=== PATIENT | female | born 1930 | race Caucasian/White ===

== ENCOUNTER → 2016-07-03 | Outpatient (CLI) | payer MEDICARE, OTHER | LOC: GMAM 11:00 | PROVIDERS: ATTEND Family Medicine | DX: E53.8 Deficiency of other specified B group vitamins (principal); R23.3 Spontaneous ecchymoses; R42 Dizziness and giddiness ==

== ENCOUNTER → 2016-11-02 | Outpatient (CLI) | payer MEDICARE, OTHER | END | disposition home or self-care (01) | LOC: GMAM 10:47 | PROVIDERS: ATTEND Family Medicine | DX: R06.02 Shortness of breath (principal) ==

== ENCOUNTER 2016-11-24 12:09 | Inpatient (IN) | payer MEDICARE, OTHER ==
[2016-11-24] MEDS ORDERED: NITROGLYCERIN 0.4 MG 25 EA TAB SL PRN ×2 (12:32→15:01)
[2016-11-24] MEDS ORDERED: ASPIRIN (CHEWABLE) 81 MG TAB PO ONE (12:32)
--- NOTE | 2016-11-24 12:51 | RAD ---
EXAM DESCRIPTION: Chest,1 View CLINICAL HISTORY: Chest heaviness. COMPARISON: Chest radiograph dated August 04, 2015. IMPRESSION: Single portable upright frontal view of the chest was obtained. Cardiac silhouette is upper limits of normal in size. Pulmonary vascularity is within normal limits. Calcific atherosclerosis noted of the aortic arch. There is blunting of the left costophrenic angle, compatible with small left-sided pleural effusion with adjacent compressive atelectasis of the left lower lobe. Probable tiny right-sided pleural effusion. Right lung is clear. No pneumothorax. IMPRESSION: 1. Small left-sided pleural effusion with adjacent compressive atelectasis of the left lower lobe. Underlying infiltrate cannot be entirely excluded. 2. Probable tiny right-sided pleural effusion. Electronically signed by: Francisco Calderón MD 11/24/2016 12:50 PM CDT
--- NOTE | 2016-11-24 13:02 | ED.PDOC ---
History of Present Illness - General Chief Complaint: General Stated Complaint: Chest heaviness Time Seen by Provider: 11/24/16 12:10 Source: patient, RN notes reviewed, Vital Signs reviewed Exam Limitations: no limitations - History of Present Illness Initial Comments: Patient was sent here from the clinic due to c/o of chest heaviness. She was there to schedule an esophageal dilation and has contributed her symptoms to her stricture. She reports 5 days of continuous chest heaviness, substernal. + SOB and nausea. No diaphoresis. Denies pain. Heaviness is worse with laying down. Timing/Duration: constant - for past 5 days Severity: moderate Improving Factors: nothing Worsening Factors: nothing Associated Symptoms: nausea/vomiting, shortness of breath Allergies/Adverse Reactions: Allergies NO KNOWN ALLERGY Allergy (Verified 11/24/16 12:20) Home Medications: Ambulatory Orders Estradiol 0.5 mg PO BEDTIME 07/29/15 Magnesium 400 mg PO DAILY 07/29/15 Multiple Vitamin [Multivitamins] 1 cap PO DAILY 07/29/15 Potassium Chloride [Potassium Chloride ER] 40 meq PO BID 07/29/15 Metoprolol Succinate [Toprol Xl] 25 mg PO BEDTIME #30 tab.er.24 07/30/15 Atorvastatin Calcium [Lipitor] 80 mg PO BEDTIME #30 tab 08/07/15 Midodrine HCl 10 mg PO TID #45 tab 08/07/15 Aspirin [Baby Aspirin] 162 mg PO DAILY 11/24/16 Citalopram Hydrobromide [CeleXA] 20 mg PO DAILY 11/24/16 Review of Systems - Review of Systems Constitutional: States: no symptoms reported EENTM: States: no symptoms reported Respiratory: States: short of breath. Denies: cough Cardiology: States: chest pain - Heaviness, palpitations. Denies: syncope Gastrointestinal/Abdominal: States: nausea, other - esophageal sticture causing discomfort, difficulty swallowing and speaking. Denies: abdominal pain, vomiting Musculoskeletal: States: no symptoms reported Skin: States: no symptoms reported Neurological: States: no symptoms reported Endocrine: States: no symptoms reported Past Medical History (General) - Patient Medical History Hx Seizures: No Hx Stroke: No Hx Dementia: No Hx Asthma: No Hx of COPD: No Hx Cardiac Disorders: No Hx Congestive Heart Failure: No Hx Pacemaker: No Hx Hypertension: Yes Hx Thyroid Disease: No Hx Diabetes: No Hx Gastroesophageal Reflux: No Hx Renal Disease: No Hx Cancer: No Hx of HIV: No Hx Hepatitis C: No Hx MRSA: No - Vaccination History Hx Tetanus, Diphtheria Vaccination: No Hx Influenza Vaccination: No Hx Pneumococcal Vaccination: No - Social History Hx Tobacco Use: Yes - Smoked as a teenager Hx Chewing Tobacco Use: No Hx Alcohol Use: No Hx Substance Use: No Hx Substance Use Treatment: No Hx Depression: No Hx Physical Abuse: No Hx Emotional Abuse: No Hx Suspected Abuse: No - Female History Patient : No Family Medical History - Family History Brother Age (years): 80 Living Status: Hx Family Asthma: No Hx Family Congestive Heart Failure: No Hx Family Hypertension: No Hx Family Stroke: No Hx Cardiac Disease: No Hx Family Diabetes: Yes Hx Family Cancer: No Mother Family History: Unknown Age (years): 92 Living Status: Cause of : Cancer Hx Family Asthma: No Hx Family Congestive Heart Failure: No Hx Family Hypertension: Yes Hx Family Stroke: No Hx Cardiac Disease: Yes Hx Family Diabetes: Yes Hx Family Cancer: Yes - stomach Physical Exam - Physical Exam General Appearance: Alert, No apparent distress - but appears uncomfortable Ears, Nose, Throat: other - Hoarse voice Neck: non-tender, full range of motion, supple Respiratory: chest non-tender, lungs clear, normal breath sounds, no respiratory distress, no accessory muscle use Cardiovascular/Chest: regular rate, rhythm, no edema, no gallop, no JVD, no murmur Gastrointestinal/Abdominal: normal bowel sounds, non tender, soft, no organomegaly, no pulsatile mass Extremity: normal range of motion, non-tender, normal inspection, no pedal edema Neurologic: alert, normal mood/affect, oriented x 3 Skin Exam: normal color, warm/dry Comments: Vital Signs - 24 hr 11/24/16 12:10 Temperature 98.7 F Pulse Rate [ 56 L Left Radial] Respiratory 20 Rate Blood Pressure 129/77 [Left Arm] O2 Sat by Pulse 97 Oximetry Progress - Progress Progress: 11/24/16 13:53 Patient with no improvement in symptoms with SLNTG or GI cocktail. She is in new onset CHF. 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 EKG unchanged from his last. no Dx of CHF but did have a BNP of ~ 400 @ last check. Will admit to hospital, discussed with Grisel Esteves NP and follow up with Dr. Schumacher on Sunday for echocardiogram - Results/Orders Results/Orders: Laboratory Tests 11/24/16 11/24/16 12:55 12:55 WBC 5.9 RBC 4.36 Hgb 12.7 Hct 38.9 MCV 89.3 MCH 29.2 MCHC 32.6 L RDW 13.8 Plt Count 165 MPV 7.7 Absolute Neuts (auto) 3.60 Absolute Lymphs (auto) 1.60 Absolute Monos (auto) 0.60 Absolute Eos (auto) 0.10 Absolute Basos (auto) 0.10 Neutrophils % 60.5 Lymphocytes % 27.4 Monocytes % 9.5 H Eosinophils % 1.7 Basophils % 0.9 Sodium 142 Potassium 3.5 L Chloride 105 Carbon Dioxide 28 Anion Gap 12.5 BUN 19 H Creatinine 0.97 BUN/Creatinine Ratio 19.6 Random Glucose 91 Serum Osmolality 285.0 Calcium 9.2 Total Bilirubin 0.9 AST 33 ALT 23 Alkaline Phosphatase 74 Creatine Kinase 48 CK-MB (CK-2) 1.5 CK-MB (CK-2) % Not Reportable Troponin I < 0.02 B-Natriuretic Peptide 1070.0 H* Serum Total Protein 6.6 Albumin 3.6 Globulin 3.0 Albumin/Globulin Ratio 1.2 - EKG/XRAY/CT EKG: Sinus, no ST T wave changes, Unchanged from - Prior EKG done by Dr. Schumacher Comments: 1st degree block, frequent PVC's XRAY: chest - Sm bilateral pleural effusions. Departure - Departure Clinical Impression: Congestive heart failure of unknown etiology Time of Disposition: 13:56 Disposition: Admit Patient Condition: Fair Departure Forms: ED Discharge - Pt. Copy, Patient Portal Self Enrollment Referrals: Mariano Staples MD [Primary Care Provider] - 1-2 Weeks Home Medications: Ambulatory Orders Estradiol 0.5 mg PO BEDTIME 07/29/15 Magnesium 400 mg PO DAILY 07/29/15 Multiple Vitamin [Multivitamins] 1 cap PO DAILY 07/29/15 Potassium Chloride [Potassium Chloride ER] 40 meq PO BID 07/29/15 Metoprolol Succinate [Toprol Xl] 25 mg PO BEDTIME #30 tab.er.24 07/30/15 Atorvastatin Calcium [Lipitor] 80 mg PO BEDTIME #30 tab 08/07/15 Midodrine HCl 10 mg PO TID #45 tab 08/07/15 Aspirin [Baby Aspirin] 162 mg PO DAILY 11/24/16 Citalopram Hydrobromide [CeleXA] 20 mg PO DAILY 11/24/16 Decision To Admit - Decistion To Admit Decision to Admit Reason: Admit from ER Decision to Admit Date: 11/24/16 Decision to Admit Time: 13:53
[2016-11-24] MEDS ORDERED: LIDOCAINE VIS-MYLANTA 30 ML UD PO ONE (13:22)
--- NOTE | 2016-11-24 14:22 | HP ---
SUPERVISING PHYSICIAN: Mariano Staples MD CHIEF COMPLAINT: Chest pressure. HISTORY OF PRESENT ILLNESS: This is an 86-year-old, female patient who is a patient of Dr. Staples's. She had gone to [facility] today to clarify an appointment with Dr. Mansfield. She was to have her esophagus stretched and she was not scheduled until 12/28/16 and she was in the clinic to see if Dr. Staples could get her an earlier appointment with Dr. Mansfield or Dr. Vickers. While she was in the clinic, she told the desk staff that she was having a lot of pressure on her chest and it felt like someone was sitting on her chest. They sent her over to the Emergency Room. In the Emergency Room, lab work was done and her CBC was basically within normal limits. Her metabolic panel showed a sodium of 142, potassium 3.5, chloride 105, carbon dioxide 28, BUN 19, creatinine 0.97. Her creatinine kinase was 48, CK-MB 1.5, troponin less than 0.02, but her BNP was 1070. The Emergency Room doctor spoke with Dr. Schumacher and he recommended that she be placed in the hospital with gentle diuresis over the next several days and that he would followup with her in clinic on Sunday and do an echocardiogram. I was called for hospital admission. PAST MEDICAL HISTORY: 1. Hypertension. 2. Hyperlipidemia. 3. Coronary artery disease. 4. Esophageal stricture. 5. History of cerebral hemorrhage approximately five years ago. 6. Gastroesophageal reflux. PAST SURGICAL HISTORY: 1. Cholecystectomy. 2. Tonsillectomy. 3. Hysterectomy. 4. Removal of intraabdominal adhesions. 5. Brain surgery due to her intracerebral hemorrhage. HOME MEDICATIONS: Per the EMR and awaiting verification. ALLERGIES: NO KNOWN DRUG ALLERGIES. SOCIAL HISTORY: The patient has recently been . She lives at home. She does have a service line bus cleaner, which is her niece. She denies any tobacco, ETOH, or illicit drug use. REVIEW OF SYSTEMS: GENERAL: Denies fever, chills or weight changes. HEENT: Denies sinus symptoms, ear pain, vision changes or sore throat. RESPIRATORY: Positive for some shortness of breath, but denies wheezing or coughing. CARDIAC: As per history of present illness. GASTROINTESTINAL: Positive for acid reflux and difficulty swallowing as well as some mild nausea. Denies vomiting, diarrhea or constipation. GENITOURINARY: Denies hematuria, dysuria or polyuria. EXTREMITIES: Positive for pedal edema that has worsened over the last month. NEUROLOGIC: Positive for dizziness. Negative for headache or seizures. PHYSICAL EXAMINATION: VITAL SIGNS: Afebrile. Heart rate 50. Blood pressure 131/81. Respiratory rate 20. O2 saturation 95% on room air. GENERAL: This is an 86-year-old female patient who is sitting on the side of her hospital bed. She is in no acute distress. HEENT: Normocephalic, atraumatic. Pupils are equal and reactive. NECK: Supple without mass. No discernible jugular venous distention. RESPIRATORY: Scattered crackles throughout. CHEST: There is equal rise and fall of the chest with inspiration and expiration. CARDIOVASCULAR: Bradycardic rate and regular rhythm. Sinus mariah on the threat monitoring analyst. ABDOMEN: Soft, nondistended, nontender. Bowel sounds are positive. EXTREMITIES: No cyanosis, clubbing or edema. NEUROLOGIC: Awake, alert and oriented times three. LABORATORY: As per history of present illness. Chest x-ray per radiologic interpretation shows a small left sided pleural effusion with adjacent compression atelectasis of the left lower lobe. Underlying infiltrate cannot be entirely excluded. Probable tiny right sided pleural effusion. All other labs and films have been reviewed via the EMR. ASSESSMENT: 1. Congestive heart failure, most likely new onset. I do not have any recorded history of heart failure. She is scheduled to have an echocardiogram on Sunday with Dr. Schumacher. 2. Bradycardia. 3. Chest pain, most likely due to #1. 4. Dizziness and weakness. 5. Hypertension. 6. Gastroesophageal reflux. 7. Esophageal stricture. 8. History of intracerebral hemorrhage five years ago. PLAN: We will admit the patient to the hospital. I will initiate the congestive heart failure guidelines. I have placed her on fluid restrictions. We will put her on the monitor. I have also started her on nitro paste. We will gently diurese her. She is presently on a beta neel and I will add a very small dose of an HAZEL inhibitor. I will put her on Protonix for ulcer prophylaxis. I will hold off on Lovenox for now as she is up and mobile and she does have the history of an intracerebral hemorrhage. We will do daily weights and follow her closely. Continue to treat as medically necessary. Hopefully she can be discharged in the next two to three days with close followup with Dr. Schumacher on Sunday. I have also done serial cardiac enzymes due to the chest pain. Dr. Staples is the collaborating physician and available for consultation. #[id number] [facility]
[2016-11-24] MEDS ORDERED: ONDANSETRON INJ 4 MG/2 ML VIAL IV PRN (15:01)
[2016-11-24] MEDS ORDERED: SODIUM CHLORIDE 0.9% (FLUSH) 10 ML SYG IV PRN (15:01)
[2016-11-24] MEDS ORDERED: MORPHINE SULFATE INJ 10 MG/ML VIAL IV PRN (15:12)
[2016-11-24] MEDS ORDERED: IV SET AND CAP CHANGE INJ INJ SCH (15:30)
[2016-11-24] MEDS: NITROGLYCERIN 2% 1 GM UD TOP SCH (15:39)
[2016-11-24] MEDS: FUROSEMIDE INJ 40 MG/4 ML VIAL IV SCH (15:39)
[2016-11-24] MEDS ORDERED: ALUMINUM & MAGNESIUM HYDROXIDE 30 ML UD PO PRN (16:02)
[2016-11-24] MEDS ORDERED: ACETAMINOPHEN 325 MG TAB PO PRN (16:03)
--- NOTE | 2016-11-24 16:05 | PCM.CORE ---
Physician DVT/VTE - Contraindications Medication Contraindication: Complication of Medical Care - 3-4 High Risk Treatments: Early Ambulation *, Sequential Compression Device
[2016-11-24] MEDS: LISINOPRIL 5 MG TAB PO SCH (16:28)
[2016-11-24] MEDS: PANTOPRAZOLE SODIUM IV 40 MG VIAL IV SCH (16:29)
[2016-11-24] MEDS ORDERED: POTASSIUM CHLORIDE 20 MEQ TAB PO ONE (16:40)
[2016-11-24] MEDS: SODIUM CHLORIDE 0.9% (FLUSH) 10 ML SYG IV SCH (21:10)
[2016-11-24] MEDS: TEMAZEPAM 15 MG CAP PO PRN (22:24)
--- NOTE | 2016-11-25 06:15 | RAD ---
Procedure: XR CHEST 2 VIEWS Exam Date: 11/25/2016 Ordering Provider: MORRIS LEBRON Clinical Indication: CHF Comparison: 11/24/2016 Findings: Cardiac silhouette: Enlarged Pulmonary vasculature : Normal Mediastinal contour: Normal Aortic contour: Aortic calcification. Focal lung consolidation: Left basilar atelectasis and/or infiltrate. Right basilar subsegmental atelectasis. Pleural effusion: Small left pleural effusion. Pneumothorax: None Acute bony or soft tissue abnormality: None Impression: 1. Cardiomegaly. 2. Left basilar atelectasis and/or infiltrate. 3. Small left pleural effusion. Electronically signed by: Ned Elliott MD 11/25/2016 6:15 AM CDT
[2016-11-25] MEDS: FUROSEMIDE INJ 40 MG/4 ML VIAL IV SCH (08:10)
[2016-11-25] MEDS: NITROGLYCERIN 2% 1 GM UD TOP SCH ×2 (08:10→16:52)
[2016-11-25] MEDS: SODIUM CHLORIDE 0.9% (FLUSH) 10 ML SYG IV SCH ×2 (08:10→20:45)
[2016-11-25] MEDS: LISINOPRIL 5 MG TAB PO SCH (08:10)
[2016-11-25] MEDS ORDERED: MEMANTINE 10 MG TAB ONE (09:06)
[2016-11-25] MEDS ORDERED: POTASSIUM CHLORIDE 10 MEQ TAB PO ONE (09:06)
[2016-11-25] MEDS ORDERED: CITALOPRAM HBR 20 MG TAB ONE (09:06)
[2016-11-25] MEDS ORDERED: METOPROLOL SUCCINATE XL 25 MG TAB PO ONE (09:06)
[2016-11-25] MEDS: METOPROLOL SUCCINATE XL 25 MG TAB PO SCH ×2 (09:26→20:44)
[2016-11-25] MEDS: MEMANTINE 10 MG TAB PO SCH (09:26)
[2016-11-25] MEDS: CITALOPRAM HBR 20 MG TAB PO SCH (09:26)
[2016-11-25] MEDS: POTASSIUM CHLORIDE 10 MEQ TAB PO SCH ×2 (09:27→17:12)
[2016-11-25] MEDS: MIDODRINE HCL 10 MG PO SCH ×2 (09:28→20:44)
[2016-11-25] MEDS ORDERED: POTASSIUM CHLORIDE 20 MEQ TAB PO ONE (12:19)
--- NOTE | 2016-11-25 13:26 | PN ---
SUPERVISING PHYSICIAN: Mariano Staples MD DATE: 11/25/16 SUBJECTIVE: The patient is sitting up on the side of the bed. She is eating her meal. She has no complaints of chest tightness or shortness of breath or chest pains, nausea, vomiting. She states she actually feels quite improved since yesterday and the "heaviness" in her chest is no longer there. OBJECTIVE: VITAL SIGNS: Afebrile. Heart rate 52. Blood pressure 121/68. Respiratory rate 16. O2 saturation 96% on room air. I&Os show positive output of 240, but the patient reported that she urinated multiple times throughout the last 24 hours. LUNGS: Clear to auscultation bilaterally. CARDIAC: Bradycardic rate and regular rhythm. ABDOMEN: Soft, nontender, nondistended. Bowel sounds are positive. EXTREMITIES: No cyanosis, clubbing or edema. NEUROLOGIC: Awake, alert and oriented times three. LABORATORY: CBC is basically within normal limits. Sodium 144, potassium 3.2, chloride 106, carbon dioxide 28, BUN 25, creatinine 1.05. Her cholesterol panel is within normal limits. Chest x-ray per radiologic interpretation showed : 1. Cardiomegaly. 2. Left basilar atelectasis and/or infiltrate. 3. Small left pleural effusion. All other labs and films have been reviewed via the EMR. ASSESSMENT: 1. Congestive heart failure, most likely new onset. There are no records of any history of heart failure. She is scheduled to have an echocardiogram on Sunday with Dr. Schumacher. 2. Bradycardia, most likely chronic. 3. Chest pain, most likely due to #1, now resolved. 4. Dizziness and weakness. 5. Hypertension. 6. Gastroesophageal reflux disease. 7. Esophageal stricture. 8. History of intracerebral hemorrhage five years ago. PLAN: We will continue present supportive care. I have changed her IV Lasix to p.o. Lasix. We have re-started her home medications. I have given her an additional dose of potassium today. I will check her labs in the morning. She is improved overnight and hopefully if her vital signs are stable and she continues to progress nicely, we will discharge her tomorrow with her followup appointment with Dr. Schumacher on Sunday where he will do an echocardiogram on her. She also has a followup with Dr. Staples the following week. Meanwhile, we will continue to monitor the patient closely and followup as needed. Dr. Staples is the collaborating physician and available for consultation. #[id number] [facility]
[2016-11-25] MEDS: PANTOPRAZOLE SODIUM IV 40 MG VIAL IV SCH (17:03)
[2016-11-25] MEDS ORDERED: ATORVASTATIN 20 MG TAB PO SCH (21:00)
[2016-11-25] MEDS: TEMAZEPAM 15 MG CAP PO PRN (21:59)
[2016-11-26] MEDS ORDERED: POTASSIUM CHLORIDE 10 MEQ TAB PO SCH (07:30)
[2016-11-26] MEDS ORDERED: FUROSEMIDE 40 MG TAB ONE (07:31)
[2016-11-26] MEDS: POTASSIUM CHLORIDE 10 MEQ TAB PO SCH (07:55)
[2016-11-26] MEDS ORDERED: FUROSEMIDE 40 MG TAB PO SCH (09:00)
[2016-11-26] MEDS: LISINOPRIL 5 MG TAB PO SCH (09:05)
[2016-11-26] MEDS: MEMANTINE 10 MG TAB PO SCH (09:05)
[2016-11-26] MEDS: SODIUM CHLORIDE 0.9% (FLUSH) 10 ML SYG IV SCH (09:08)
[2016-11-26] MEDS: CITALOPRAM HBR 20 MG TAB PO SCH (09:08)
[2016-11-26] MEDS: NITROGLYCERIN 2% 1 GM UD TOP SCH (09:08)
[2016-11-26] MEDS: METOPROLOL SUCCINATE XL 25 MG TAB PO SCH (09:09)
[2016-11-26 11:08] VITALS: BP 138/72; TEMP 98.2; O2SAT 97
--- NOTE | 2016-11-26 11:53 | DS ---
SUPERVISING PHYSICIAN: Nik Ramos MD DISCHARGE DIAGNOSES: 1. Congestive heart failure of unknown etiology, most likely new onset. There are no records of any congestive heart failure. Her BNP on admission was 1070, today it is 292. She is scheduled to have an echocardiogram with Dr. Schumacher on Sunday. 2. Bradycardia, most likely chronic. 3. Chest pain, most likely due to #1 that is now resolved. 4. Dizziness and weakness. 5. Hypertension. 6. Gastroesophageal reflux disease. 7. Esophageal stricture. 8. History of intracerebral hemorrhage five years ago. HISTORY OF PRESENT ILLNESS: This is an 86-year-old, female patient who is a patient of Dr. Cross. She had gone to the clinic on Sunday afternoon to have them assist her in getting her EGD scheduled with Dr. Vickers. While she was in the clinic, the personnel at [facility] noticed that she was having chest pain and she was sent to the Emergency Room. She said that she had been having a lot of chest pressure for several days and it felt like somebody was sitting on her chest. She was also slightly short of breath. In the Emergency Room, lab work was done and her CBC was basically within normal limits. Her metabolic panel showed a sodium of 142, potassium 3.5, chloride 305, carbon dioxide 28, BUN 19, creatinine 0.97. Her creatinine kinase was 48, CK-MB 1.5, troponin less than 0.02, but her BNP was 1070. The Emergency Room physician spoke with Dr. Schumacher and he recommended that she be placed in the hospital gently diuresed and he would see her in his clinic here on [place] on Sunday and do an echocardiogram. I was called for hospital admission. HOSPITAL COURSE: The patient was admitted to the hospital. She was initially put on some IV Lasix therapy, she diuresed quite nicely. Her chest pain and shortness of breath subsided. She was in transition to oral Lasix. Her potassium several times was slightly low and it had to be replaced. She said she has had some problems in the past with low potassium. She is presently on a beta neel and very low dose of an cee inhibitor was started. Her blood sugars remained stable with the exception she does get bradycardiac in the 50s at times but also states that she usually has a low heart rate. She diuresed quite nicely over her 2 day stay and at this point she is ready to go home with some medication changes as well as followup appointment. DISCHARGE PLAN: The patient will be discharged home in sable condition. She is to increase her activity as tolerated. She is follow a low salt diet. There is an appointment with Dr. Schumacher on Sunday for followup as well as an echocardiogram because her potassium has been somewhat low. She will see me in clinic on Sunday to check her potassium as well as to get her followup for her EGD with the GI doctor in [place]. She will have a hospital followup with Dr. Staples the following week. We have continued her previous home medications with the exception that I have slightly increased her potassium from 30 mEq to 40 mEq daily and I have added 20 mg of Lasix as well as 5 mg of lisinopril. She received extensive congestive heart failure treatment and she is to return to the hospital or call Dr. Staples's office for any further complications or problems. DISCHARGE MEDICATIONS: 1. Magnesium. 2. Estradiol. 3. multivitamins. 4. Lipitor. 5. Citalopram. 6. Magnesium oxide. 7. Omeprazole. 8. Namenda. 9. Hydrochlorothiazide. 10. Baby aspirin. 11. Midodrine.. 12. Metoprolol. 13. Furosemide. 14. Lisinopril. 15. Nitroglycerin. 16. Potassium chloride. #[id number] [facility]
[2016-11-26] MEDS ORDERED: ESTRADIOL TAB 1 MG PO SCH (21:00)
== END 2016-11-26 10:30 | disposition home or self-care (01) | DRG 293 ==
LOC: ER 12:09 → MS 14:19
PROVIDERS: ADMIT Nurse Practitioner Acute Care; ATTEND Nurse Practitioner Acute Care
DX: I11.0 Hypertensive heart disease with heart failure (principal); I50.9 Heart failure, unspecified; R00.1 Bradycardia, unspecified; R07.9 Chest pain, unspecified; R53.1 Weakness; R42 Dizziness and giddiness; E87.6 Hypokalemia; K21.9 Gastro-esophageal reflux disease without esophagitis; E78.5 Hyperlipidemia, unspecified; K22.2 Esophageal obstruction; I25.10 Atherosclerotic heart disease of native coronary artery without angina pectoris; Z86.73 Personal history of transient ischemic attack (TIA), and cerebral infarction without residual deficits; Z66 Do not resuscitate; Z79.82 Long term (current) use of aspirin; Z79.899 Other long term (current) drug therapy

== ENCOUNTER → 2016-11-29 | Outpatient (CLI) | payer MEDICARE, OTHER | END | disposition home or self-care (01) | LOC: GMA 11:02 | PROVIDERS: ATTEND Nurse Practitioner Acute Care | DX: I50.9 Heart failure, unspecified (principal); R60.0 Localized edema ==

== ENCOUNTER 2016-12-04 17:18 | Emergency (ER) | payer MEDICARE, OTHER ==
[2016-12-04 17:40] VITALS: BP 153/70; TEMP 98; O2SAT 99
--- NOTE | 2016-12-04 17:45 | ED.PDOC ---
History of Present Illness - General Chief Complaint: Upper Extremity Injury Stated Complaint: Fell Sunday, bruised forearm Time Seen by Provider: 12/04/16 17:43 Source: patient Exam Limitations: no limitations - History of Present Illness Initial Comments: the patient is an 86-year-old female presenting to the emergency room secondary tobruising and swelling surrounding her left elbow after she fell 2 days ago. She is moving the elbow and the left upper arm well. There is swelling starting at the elbow and swelling of the olecranon bursa. No evidence of infection at this time. Bruising extends down the forearm along with gravity. Range of motion is preserved. Strength is preserved. There is no crepitus about the elbow. No other deformity. She is neurovascularly intact in the left upper extremity. Occurred: last week Pain - Upper Extremity: mild: Elbow, left Allergies/Adverse Reactions: Allergies NO KNOWN ALLERGY Allergy (Verified 11/24/16 12:20) Home Medications: Ambulatory Orders Estradiol 0.5 mg PO BEDTIME #0 07/29/15 Magnesium 400 mg PO DAILY 07/29/15 Multiple Vitamin [Multivitamins] 1 cap PO DAILY 07/29/15 Atorvastatin Calcium [Lipitor] 80 mg PO BEDTIME #30 tab 08/07/15 Aspirin [Baby Aspirin] 162 mg PO DAILY 11/24/16 Citalopram Hydrobromide [Celexa] 20 mg PO DAILY 11/24/16 Hydrochlorothiazide 25 mg PO DAILY 11/24/16 Magnesium Oxide [Magnesium] 500 mg PO DAILY 11/24/16 Memantine [Namenda] 10 mg PO DAILY 11/24/16 Metoprolol Succinate [Toprol Xl] 25 mg PO BID 11/24/16 Midodrine HCl 10 mg PO BID 11/24/16 Omeprazole 20 mg PO BID 11/24/16 Furosemide [Lasix] 20 mg PO DAILY #30 tab 11/26/16 Lisinopril [Prinivil] 5 mg PO DAILY #30 tablet 11/26/16 Nitroglycerin 0.4 mg Tab [Nitrostat] 1 ea SL Q5MIN PRN #1 bottle 11/26/16 Potassium Chloride Tab [K-Dur] 40 meq PO DAILY #60 tab 11/26/16 Potassium Chloride [K-Tab] 40 meq PO BID #120 tab 11/26/16 Review of Systems - Review of Systems Review of Systems: 12/04/16 17:44 for new symptoms Constitutional: States: no symptoms reported EENTM: States: no symptoms reported Respiratory: States: no symptoms reported Cardiology: States: no symptoms reported Gastrointestinal/Abdominal: States: no symptoms reported Genitourinary: States: no symptoms reported Musculoskeletal: States: see HPI Skin: States: see HPI Neurological: States: no symptoms reported Endocrine: States: no symptoms reported All other Systems: No Change from Baseline Past Medical History (General) - Patient Medical History Hx Seizures: No Hx Stroke: No Hx Dementia: No Hx Asthma: No Hx of COPD: No Hx Cardiac Disorders: No Hx Congestive Heart Failure: No Hx Pacemaker: No Hx Hypertension: Yes Hx Thyroid Disease: No Hx Diabetes: No Hx Gastroesophageal Reflux: Yes Hx Renal Disease: No Hx Cancer: No Hx of HIV: No Hx Hepatitis C: No Hx MRSA: No Surgical History: cholecystectomy, tonsillectomy, Hysterectomy - Vaccination History Hx Tetanus, Diphtheria Vaccination: No Hx Influenza Vaccination: No Hx Pneumococcal Vaccination: No - Social History Hx Tobacco Use: No Hx Chewing Tobacco Use: No Hx Alcohol Use: No Hx Substance Use: No Hx Substance Use Treatment: No Hx Depression: No Feels Threatened In Home Enviroment: No Feels Threatened In a Relationship: No Hx Physical Abuse: No Hx Emotional Abuse: No Hx Suspected Abuse: No - Female History Patient is a Female of Child Bearing Age (10 -59 yrs old): No Patient : No Family Medical History - Family History Brother Age (years): 80 Living Status: Hx Family Asthma: No Hx Family Congestive Heart Failure: No Hx Family Hypertension: No Hx Family Stroke: No Hx Cardiac Disease: No Hx Family Diabetes: Yes Hx Family Cancer: No Mother Family History: Unknown Age (years): 92 Living Status: Cause of : Cancer Hx Family Asthma: No Hx Family Congestive Heart Failure: No Hx Family Hypertension: Yes Hx Family Stroke: No Hx Cardiac Disease: Yes Hx Family Diabetes: Yes Hx Family Cancer: Yes - stomach Physical Exam - Physical Exam General Appearance: Alert, Comfortable, No apparent distress Eyes, Ears, Nose, Throat Exam: PERRL/EOMI Neck: full range of motion Cardiovascular/Respiratory: normal peripheral pulses, no respiratory distress Shoulder Exam: normal inspection, non-tender, no evidence of injury, normal ROM Elbow/Forearm Exam: swelling - see history of present illness. Wrist Exam: normal inspection, non-tender, no evidence of injury, normal ROM Hand Exam: normal inspection, non-tender, no evidence of injury, normal ROM Neuro/Tendon: normal sensation, normal motor functions, normal tendon functions Mental Status: alert, oriented x 3 Skin Exam: normal color - ith the exception of the bruising Comments: Vital Signs - 24 hr 12/04/16 17:34 Temperature 98 F Pulse Rate [L 62 Arm] Respiratory 20 Rate Blood Pressure 153/70 [L Arm] O2 Sat by Pulse 99 Oximetry Progress - Progress Progress: 12/04/16 17:45 the patient is an 86-year-old female presenting with inflammation of the left olecranon bursa and bruising surrounding and extending down from the elbow due to a fall yesterday. No evidence of any functional limitation or pain with movement. She is neurovascularly preserved. X-rays not warranted at this time. Monitor for any evidence of infection. ER warnings were given for any worsening. She should expect some swelling of the olecranon bursa for the next month or so. - EKG/XRAY/CT CT Ordered: No CT Interpretation Call Back: No Departure - Departure Clinical Impression: Contusion Qualifiers: Encounter type: initial encounter Contusion area: elbow Laterality: left Qualified Code(s): S50.02XA - Contusion of left elbow, initial encounter Disposition: Discharge to Home or Self Care Condition: Fair Departure Forms: ED Discharge - Pt. Copy, Patient Portal Self Enrollment Instructions: DI for Contusion Diet: regular diet Activity: increase activity as tolerated Referrals: Mariano Staples MD [Primary Care Provider] - 1-2 Weeks Home Medications: Ambulatory Orders Estradiol 0.5 mg PO BEDTIME #0 07/29/15 Magnesium 400 mg PO DAILY 07/29/15 Multiple Vitamin [Multivitamins] 1 cap PO DAILY 07/29/15 Atorvastatin Calcium [Lipitor] 80 mg PO BEDTIME #30 tab 08/07/15 Aspirin [Baby Aspirin] 162 mg PO DAILY 11/24/16 Citalopram Hydrobromide [Celexa] 20 mg PO DAILY 11/24/16 Hydrochlorothiazide 25 mg PO DAILY 11/24/16 Magnesium Oxide [Magnesium] 500 mg PO DAILY 11/24/16 Memantine [Namenda] 10 mg PO DAILY 11/24/16 Metoprolol Succinate [Toprol Xl] 25 mg PO BID 11/24/16 Midodrine HCl 10 mg PO BID 11/24/16 Omeprazole 20 mg PO BID 11/24/16 Furosemide [Lasix] 20 mg PO DAILY #30 tab 11/26/16 Lisinopril [Prinivil] 5 mg PO DAILY #30 tablet 11/26/16 Nitroglycerin 0.4 mg Tab [Nitrostat] 1 ea SL Q5MIN PRN #1 bottle 11/26/16 Potassium Chloride Tab [K-Dur] 40 meq PO DAILY #60 tab 11/26/16 Potassium Chloride [K-Tab] 40 meq PO BID #120 tab 11/26/16 Additional Instructions: the patient is an 86-year-old female presenting with inflammation of the left olecranon bursa and bruising surrounding and extending down from the elbow due to a fall yesterday. No evidence of any functional limitation or pain with movement. She is neurovascularly preserved. X-rays not warranted at this time. Monitor for any evidence of infection. ER warnings were given for any worsening. She should expect some swelling of the olecranon bursa for the next month or so.
== END 2016-12-04 18:00 | disposition home or self-care (01) ==
LOC: ER 17:18
DX: S50.02XA Contusion of left elbow, initial encounter (principal); I10 Essential (primary) hypertension; Z79.82 Long term (current) use of aspirin; Z79.899 Other long term (current) drug therapy; W19.XXXA Unspecified fall, initial encounter; Y92.9 Unspecified place or not applicable

== ENCOUNTER → 2016-12-07 | Outpatient (CLI) | payer MEDICARE, OTHER | END | disposition home or self-care (01) | LOC: GMAM 14:01 | PROVIDERS: ATTEND Family Medicine | DX: E87.6 Hypokalemia (principal) ==

== ENCOUNTER → 2016-12-14 | Outpatient (CLI) | payer MEDICARE, OTHER | LOC: GMAM 16:47 | PROVIDERS: ATTEND Family Medicine | DX: E87.6 Hypokalemia (principal) ==

== ENCOUNTER 2016-12-16 19:40 | Emergency (ER) | payer MEDICARE, OTHER ==
--- NOTE | 2016-12-16 20:27 | ED.PDOC ---
History of Present Illness - General Chief Complaint: Respiratory Problem Stated Complaint: Difficulty Breathing Time Seen by Provider: 12/16/16 20:26 Source: patient, family Exam Limitations: no limitations - History of Present Illness Initial Comments: Ariana Laughlin 86y/o female recently diagnosed with CHF unspecified brought by daughter derrick because of SOB recently hospitalized here at [facility] 3 weeks ago and was started on diuretics by the bead preparer Dr. Schumacher also acording to patient had echocardiogram done and was told that her EF was normal.Denies chest pains ,cough.Stated has problems with inspiration but not breathing out. Timing/Duration: 4-6 hours Severity: moderate Activities at Onset: none Possible Cause: unknown cause Improving Factors: nothing Worsening Factors: nothing Associated Symptoms: denies symptoms Respiratory Risk Factors: no cause identified Allergies/Adverse Reactions: Allergies NO KNOWN ALLERGY Allergy (Verified 11/24/16 12:20) Home Medications: Ambulatory Orders Estradiol 0.5 mg PO BEDTIME #0 07/29/15 Magnesium 400 mg PO DAILY 07/29/15 Multiple Vitamin [Multivitamins] 1 cap PO DAILY 07/29/15 Atorvastatin Calcium [Lipitor] 80 mg PO BEDTIME #30 tab 08/07/15 Aspirin [Baby Aspirin] 162 mg PO DAILY 11/24/16 Citalopram Hydrobromide [Celexa] 20 mg PO DAILY 11/24/16 Hydrochlorothiazide 25 mg PO DAILY 11/24/16 Magnesium Oxide [Magnesium] 500 mg PO DAILY 11/24/16 Memantine [Namenda] 10 mg PO DAILY 11/24/16 Metoprolol Succinate [Toprol Xl] 25 mg PO BID 11/24/16 Midodrine HCl 10 mg PO BID 11/24/16 Omeprazole 20 mg PO BID 11/24/16 Furosemide [Lasix] 20 mg PO DAILY #30 tab 11/26/16 Lisinopril [Prinivil] 5 mg PO DAILY #30 tablet 11/26/16 Nitroglycerin 0.4 mg Tab [Nitrostat] 1 ea SL Q5MIN PRN #1 bottle 11/26/16 Potassium Chloride Tab [K-Dur] 40 meq PO DAILY #60 tab 11/26/16 Potassium Chloride [K-Tab] 40 meq PO BID #120 tab 11/26/16 Review of Systems - Review of Systems Constitutional: States: no symptoms reported EENTM: States: no symptoms reported Respiratory: States: see HPI Cardiology: States: no symptoms reported Gastrointestinal/Abdominal: States: no symptoms reported Genitourinary: States: no symptoms reported Musculoskeletal: States: no symptoms reported Skin: States: no symptoms reported Neurological: States: no symptoms reported Endocrine: States: no symptoms reported Hematologic/Lymphatic: States: no symptoms reported Past Medical History (General) - Patient Medical History Hx Seizures: No Hx Stroke: No Hx Dementia: No Hx Asthma: No Hx of COPD: No Hx Cardiac Disorders: No Hx Congestive Heart Failure: No Hx Pacemaker: No Hx Hypertension: Yes Hx Thyroid Disease: No Hx Diabetes: No Hx Gastroesophageal Reflux: Yes Hx Renal Disease: No Hx Cancer: No Hx of HIV: No Hx Hepatitis C: No Hx MRSA: No Surgical History: cholecystectomy, other - hysterectomy,colonoscopy,egd - Vaccination History Hx Tetanus, Diphtheria Vaccination: No Hx Influenza Vaccination: No Hx Pneumococcal Vaccination: No - Social History Hx Tobacco Use: No Hx Chewing Tobacco Use: No Hx Alcohol Use: No Hx Substance Use: No Hx Substance Use Treatment: No Hx Depression: No Hx Physical Abuse: No Hx Emotional Abuse: No Hx Suspected Abuse: No - Female History Patient : No Family Medical History - Family History Brother Age (years): 80 Living Status: Hx Family Asthma: No Hx Family Congestive Heart Failure: No Hx Family Hypertension: No Hx Family Stroke: No Hx Cardiac Disease: No Hx Family Diabetes: Yes Hx Family Cancer: No Mother Family History: Unknown Age (years): 92 Living Status: Cause of : Cancer Hx Family Asthma: No Hx Family Congestive Heart Failure: No Hx Family Hypertension: Yes Hx Family Stroke: No Hx Cardiac Disease: Yes Hx Family Diabetes: Yes Hx Family Cancer: Yes - stomach Physical Exam - Physical Exam General Appearance: Alert, Anxious, No apparent distress Eyes, Ears, Nose, Throat Exam: PERRL/EOMI, normal ENT inspection, TMs normal Neck: non-tender, full range of motion, supple Respiratory: chest non-tender, lungs clear, normal breath sounds, no respiratory distress Cardiovascular/Chest: normal peripheral pulses, regular rate, rhythm, no edema, no JVD, no murmur Peripheral Pulses: radial,right: 1+, radial,left: 1+ Gastrointestinal/Abdominal: normal bowel sounds, non tender, soft, no organomegaly Extremity: normal range of motion, pedal edema - trace Neurologic: no motor/sensory deficits, alert, normal mood/affect, oriented x 3 Skin Exam: normal color, warm/dry Lymphatic: no adenopathy Progress - Progress Progress: 12/17/16 00:30 Vital Signs - 8 hr 12/16/16 12/16/16 12/16/16 20:20 21:00 21:51 Temperature 98.6 F Pulse Rate [R 75 60 Arm] Respiratory 20 20 20 Rate Blood Pressure 96/40 120/85 [R Arm] O2 Sat by Pulse 98 95 Oximetry 12/16/16 20:31 IV Care:Saline Lock per Protoc QSHIFT Laboratory Results - last 24 hr 12/16/16 12/16/16 12/16/16 21:00 21:00 21:45 WBC 5.1 RBC 4.17 L Hgb 12.2 Hct 37.2 MCV 89.2 MCH 29.2 MCHC 32.8 L RDW 14.1 Plt Count 152 MPV 8.0 Absolute Neuts (auto) 3.00 Absolute Lymphs (auto) 1.60 Absolute Monos (auto) 0.40 Absolute Eos (auto) 0.10 Absolute Basos (auto) 0.00 Neutrophils % 59.0 Lymphocytes % 31.9 Monocytes % 7.5 Eosinophils % 1.0 Basophils % 0.6 PT 10.5 INR 0.930 PTT (SP) 28.0 D-Dimer, Quantitative 335 H* Sodium 141 Potassium 3.8 Chloride 105 Carbon Dioxide 27 Anion Gap 12.8 BUN 22 H Creatinine 0.82 BUN/Creatinine Ratio 26.8 H Random Glucose 101 Serum Osmolality 284.7 Calcium 9.5 Magnesium 2.2 Total Bilirubin 0.6 Direct Bilirubin 0.1 Indirect Bilirubin 0.5 AST 51 H ALT 39 Alkaline Phosphatase 84 Creatine Kinase 58 CK-MB (CK-2) 2.4 CK-MB (CK-2) % Not Reportable Troponin I < 0.02 B-Natriuretic Peptide 1050.0 H* Serum Total Protein 7.0 Albumin 4.0 Urine Color Yellow Urine Appearance Clear Urine pH 7.5 Ur Specific [place] 1.015 Urine Protein Negative Urine Glucose (UA) Negative Urine Ketones Negative Urine Blood Negative Urine Nitrite Negative Urine Bilirubin Negative Urine Urobilinogen 0.2 Ur Leukocyte Esterase Negative Urine RBC 0-1 Urine WBC 0-1 Ur Epithelial Cells 1-3 Urine Bacteria Rare 07/16/17 00:49 Recommended admit for obs but wants to go home advised no to go on long trips - EKG/XRAY/CT EKG: Sinus, no ST T wave changes Comments: Heart rate-66 unifocal pvc Departure - Departure Clinical Impression: Congestive heart failure Qualifiers: Congestive heart failure type: unspecified congestive heart failure type Congestive heart failure chronicity: unspecified congestive heart failure chronicity Qualified Code(s): I50.9 - Heart failure, unspecified Time of Disposition: 00:51 Disposition: Discharge to Home or Self Care Condition: Fair Departure Forms: ED Discharge - Pt. Copy, Patient Portal Self Enrollment Instructions: Heart Failure, DI for Heart Failure, How to [place] With Heart Failure Diet: low salt diet, other - Limit fluid intake not more than 2 liters/day Referrals: Mariano Staples MD [Primary Care Provider] - 1-2 Weeks Home Medications: Ambulatory Orders Estradiol 0.5 mg PO BEDTIME #0 07/29/15 Magnesium 400 mg PO DAILY 07/29/15 Multiple Vitamin [Multivitamins] 1 cap PO DAILY 07/29/15 Atorvastatin Calcium [Lipitor] 80 mg PO BEDTIME #30 tab 08/07/15 Aspirin [Baby Aspirin] 162 mg PO DAILY 11/24/16 Citalopram Hydrobromide [Celexa] 20 mg PO DAILY 11/24/16 Hydrochlorothiazide 25 mg PO DAILY 11/24/16 Magnesium Oxide [Magnesium] 500 mg PO DAILY 11/24/16 Memantine [Namenda] 10 mg PO DAILY 11/24/16 Metoprolol Succinate [Toprol Xl] 25 mg PO BID 11/24/16 Midodrine HCl 10 mg PO BID 11/24/16 Omeprazole 20 mg PO BID 11/24/16 Furosemide [Lasix] 20 mg PO DAILY #30 tab 11/26/16 Lisinopril [Prinivil] 5 mg PO DAILY #30 tablet 11/26/16 Nitroglycerin 0.4 mg Tab [Nitrostat] 1 ea SL Q5MIN PRN #1 bottle 11/26/16 Potassium Chloride Tab [K-Dur] 40 meq PO DAILY #60 tab 11/26/16 Potassium Chloride [K-Tab] 40 meq PO BID #120 tab 11/26/16 Additional Instructions: Return to emergency room as needed;Recheck with bead preparer Dr. Schumacher 2016 call for appointment Increase Lasix 20 mg by mouth am/pm
--- NOTE | 2016-12-16 21:27 | RAD ---
EXAM DESCRIPTION: Chest,2 Views CLINICAL HISTORY: 86 years Female sob COMPARISON: 11/25/2016. FINDINGS: Stable cardiac enlargement and pulmonary hyperinflation. Small amount of atelectasis in the left lung base and patchy infiltrate or atelectasis in the right lower lobe with moderate bilateral pleural effusions. IMPRESSION: Unchanged cardiomegaly and COPD Left basilar atelectasis and pleural fluid Increase in infiltrate and/or atelectasis in the right lung base and right pleural effusion Electronically signed by: Snow Martinez 12/16/2016 9:26 PM CDT
--- NOTE | 2016-12-16 22:54 | CT ---
PROCEDURE: CTA Chest CLINICAL HISTORY: 86 years Female elevated d dimer COMPARISON: None. TECHNIQUE: Contiguous axial images were obtained through the chest during the infusion of IV contrast. Reformatted images obtained. MIP reformatted images obtained. This exam was performed according to our department optimization program which includes automated exposure control, adjustment of the mA and/or kv according to patient size and/or use of iterative reconstruction technique. FINDINGS: No evidence of pulmonary embolus. Heart is mildly enlarged. Small hiatal hernia. Moderate bilateral pleural effusions. No significant hilar or axillary mediastinal adenopathy. Aorta and coronary vessels have areas of calcification. Atelectasis in the dependent portions of the chest. Scarring or atelectasis in the right middle lobe with mild bronchiectasis. Atelectasis in the lingula. IMPRESSION:No evidence of pulmonary embolus There is dependent atelectasis with areas of atelectasis in the lingula and right middle lobe and moderate bilateral pleural effusions Electronically signed by: Snow Martinez 12/16/2016 10:53 PM CDT
[2016-12-17 01:21] VITALS: BP 150/78; TEMP 98.2; O2SAT 96
== END 2016-12-17 01:10 | disposition home or self-care (01) ==
LOC: ER 19:40
DX: I11.0 Hypertensive heart disease with heart failure (principal); I50.9 Heart failure, unspecified; Z79.82 Long term (current) use of aspirin; Z79.899 Other long term (current) drug therapy

== ENCOUNTER → 2017-01-15 | Outpatient (CLI) | payer MEDICARE, OTHER ==
--- NOTE | 2017-01-15 15:57 | CT ---
EXAM DESCRIPTION: Abdomen w/o Contrast CLINICAL HISTORY: CHRONIC KIDNEY DISEASE COMPARISON: CTA chest 12/16/2016. TECHNIQUE: Spiral-axial scans at 5 mm intervals through the abdomen. Coronal and sagittal 2.0 mm reconstructions. No IV or oral contrast. Total DLP: 428.34 mGy - m2. This exam was performed according to our departmental dose-optimization program which includes automated exposure control, adjustment of the mA and/or kV according to patient size and/or use of iterative reconstruction technique; to reduce radiation dose to as low as reasonably achievable (ALARA). FINDINGS: Lung bases and pleura: Minimal scarring with bibasilar atelectasis and bilateral pleural effusions which are [id number]. Upper Abdominal organs: Craniocaudal dimension of the right lobe of the liver is 19.4 cm. Normal density. Spleen and adrenal glands negative. Pancreas/Gallbladder/Ducts: Surgical clips in the gallbladder fossa with no fluid. Pancreas negative. No significant distention of the common bile duct. Kidneys: No radiodense stones hydronephrosis or perirenal fluid. Mesentery: No ascites in the upper abdomen. No free air. No significant stranding or fascial thickening. Aorta: Mild to moderate atherosclerotic changes and ectasia extending into the common iliac vessels. Stomach: Radiodense food or medication in the stomach. No distention. Small Bowel: Included bowel shows normal caliber. Terminal Ileum/Cecum: Not included. Colon: Normal caliber of the included bowel. Spine: Spondylosis L4-5 and L5-S1 with disc space loss. Canal and foraminal narrowing. Disc bulge L3-4 with canal narrowing. Abdominal Wall/Back Soft Tissues: Negative. IMPRESSION: 1. Bilateral [id number] pleural effusion. No ascites or free air. 2. Bilateral kidneys less than 10 cm in the long axis. No hydronephrosis or radiodense stones or perirenal fluid. 3. Hepatomegaly with normal density. 4. 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 Electronically signed by: Jeremias Cedillo MD 01/15/2017 3:55 PM CDT Workstation: [id number]
== END | disposition home or self-care (01) ==
LOC: LAB.O 12:28
PROVIDERS: ATTEND Internal Medicine Nephrology
DX: N18.4 Chronic kidney disease, stage 4 (severe) (principal)

== ENCOUNTER → 2017-01-17 | Outpatient (CLI) | payer MEDICARE, OTHER | END | disposition home or self-care (01) | LOC: LAB.O 13:04 | PROVIDERS: ATTEND Internal Medicine Nephrology | DX: N18.4 Chronic kidney disease, stage 4 (severe) (principal) ==

== ENCOUNTER 2017-01-27 11:47 | Emergency (ER) | payer MEDICARE, OTHER ==
[2017-01-27 12:02] VITALS: TEMP 97.8; O2SAT 93
--- NOTE | 2017-01-27 12:09 | ED.PDOC ---
History of Present Illness - General Chief Complaint: Back Pain or Injury Stated Complaint: "Blacked out" earlier and fell. Upper back pain Time Seen by Provider: 01/27/17 11:55 Source: patient, RN notes reviewed, Vital Signs reviewed, other - "caregiver" Michael Chris - cousin per report. Patient reportedly lives with Michael Chris. Exam Limitations: no limitations Additional Information: Pt brought in by "caregiver/cousin" for assessment of head s/p fall earlier today. This is Pt's 3rd fall in past 3 to 4 months. Pt states she "blacked out" fell and hit her head. Pt has a history of an intracranial hemorrhage requiring evacuation about 6 yrs ago. Pt and caregiver wanted to make sure Pt's head was ok. Also, Pt was c/o back pain from upper to lower back. She took a [place] that she had previously prescribed for hip pain. She reports improvement in back pain following hydrocodone. Pt in no acute distress at rest lying supine in stretcher. Pt arrived into ED by wheelchair. Pt states she wants to go home. I told her we had to ensure it was safe for her to go home first. Her caregiver agreed. Discharge criteria: -Patient needs to exhibit that she can ambulate safely from ED bed to bathroom - following infusion of NS 500 ml IV bolus -Patient's labs/EKG/imaging need to be stable/normal - History of Present Illness Timing/Duration: 1-3 hours Severity: moderate Improving Factors: rest Worsening Factors: movement Associated Symptoms: weakness - and difficulty ambulating Allergies/Adverse Reactions: Allergies NO KNOWN ALLERGY Allergy (Verified 11/24/16 12:20) Home Medications: Ambulatory Orders Estradiol 0.5 mg PO BEDTIME #0 07/29/15 Magnesium 400 mg PO DAILY 07/29/15 Multiple Vitamin [Multivitamins] 1 cap PO DAILY 07/29/15 Atorvastatin Calcium [Lipitor] 80 mg PO BEDTIME #30 tab 08/07/15 Aspirin [Baby Aspirin] 162 mg PO DAILY 11/24/16 Citalopram Hydrobromide [Celexa] 20 mg PO DAILY 11/24/16 Hydrochlorothiazide 25 mg PO DAILY 11/24/16 Magnesium Oxide [Magnesium] 500 mg PO DAILY 11/24/16 Memantine [Namenda] 10 mg PO DAILY 11/24/16 Metoprolol Succinate [Toprol Xl] 25 mg PO BID 11/24/16 Midodrine HCl 10 mg PO BID 11/24/16 Omeprazole 20 mg PO BID 11/24/16 Lisinopril [Prinivil] 5 mg PO DAILY #30 tablet 11/26/16 Nitroglycerin 0.4 mg Tab [Nitrostat] 1 ea SL Q5MIN PRN #1 bottle 11/26/16 Potassium Chloride Tab [K-Dur] 40 meq PO DAILY #60 tab 11/26/16 Potassium Chloride [K-Tab] 40 meq PO BID #120 tab 11/26/16 Review of Systems - Review of Systems Constitutional: States: see HPI EENTM: States: no symptoms reported Respiratory: States: no symptoms reported Cardiology: States: no symptoms reported Gastrointestinal/Abdominal: States: no symptoms reported Genitourinary: States: no symptoms reported Musculoskeletal: States: other - Left arm pain following fall. No gross deformity. Skin tears present with echymosis. Skin: States: other - echymoses and skin tears noted - mostly left upper extremity Neurological: States: headache Endocrine: States: no symptoms reported Hematologic/Lymphatic: States: easy bruising Past Medical History (General) - Patient Medical History Hx Seizures: No Hx Stroke: No Hx Dementia: No Hx Asthma: No Hx of COPD: No Hx Cardiac Disorders: No Hx Congestive Heart Failure: No Hx Pacemaker: No Hx Hypertension: Yes Hx Thyroid Disease: No Hx Diabetes: No Hx Gastroesophageal Reflux: Yes Hx Renal Disease: No Hx Cancer: No Hx of HIV: No Hx Hepatitis C: No Hx MRSA: No - Vaccination History Hx Tetanus, Diphtheria Vaccination: No Hx Influenza Vaccination: No Hx Pneumococcal Vaccination: No - Social History Hx Tobacco Use: Yes Hx Chewing Tobacco Use: No Hx Alcohol Use: No Hx Substance Use: No Hx Substance Use Treatment: No Hx Depression: No Hx Physical Abuse: No Hx Emotional Abuse: No Hx Suspected Abuse: No - Female History Patient : No Family Medical History - Family History Brother Age (years): 80 Living Status: Hx Family Asthma: No Hx Family Congestive Heart Failure: No Hx Family Hypertension: No Hx Family Stroke: No Hx Cardiac Disease: No Hx Family Diabetes: Yes Hx Family Cancer: No Mother Family History: Unknown Age (years): 92 Living Status: Cause of : Cancer Hx Family Asthma: No Hx Family Congestive Heart Failure: No Hx Family Hypertension: Yes Hx Family Stroke: No Hx Cardiac Disease: Yes Hx Family Diabetes: Yes Hx Family Cancer: Yes - stomach Physical Exam - Physical Exam General Appearance: Alert, Emaciated, No apparent distress - at rest. Eye Exam: bilateral normal Ears, Nose, Throat: hearing grossly normal, normal ENT inspection, normal pharynx Neck: non-tender, full range of motion, supple Respiratory: no respiratory distress, no accessory muscle use Cardiovascular/Chest: regular rate, rhythm - with occasional extra beats Gastrointestinal/Abdominal: non tender, soft Back Exam: normal inspection Extremity: normal range of motion, other - Left upper extremity with several skin tears - re-approximated with steri-strips. Not bleeding. Subcutaneous echymosis noted without evidence of gross bony deformities. Right lateral maleolus with evidence of chronic wound - no obvious drainage noted, no obvious evidence of cellulitis. Wound edges dry and not fully reapproximated. 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 Syncope after getting up from seated position. Pt was able to get up an ambulate after 500 NS IV bolus. She was able to provide a U/A specimen. She felt tired - likely due to [place] prior to arrival. She has no focal neuro deficits. Her repeat CBC showed a slightly lower H/H likely due to IV fluids and phlebotomy. Pt is able to sit up, converse, and is in no distress. Recommend she use her walker at home, stay well hydrated with water, stop her beta-neel for now, and follow-up with Cards/PCM within 1 to 3 days for reassessment. Strict return precautions given as well. - Results/Orders Results/Orders: 01/27/17 12:15 EKG STAT 01/27/17 13:41 URINALYSIS Stat Laboratory Results - last 24 hr 01/27/17 01/27/17 01/27/17 12:00 12:00 12:00 WBC 9.0 RBC 4.16 L Hgb 11.9 L Hct 37.3 MCV 89.6 MCH 28.6 MCHC 32.0 L RDW 15.5 H Plt Count 184 MPV 7.8 Absolute Neuts (auto) 7.50 H Absolute Lymphs (auto) 1.10 Absolute Monos (auto) 0.40 Absolute Eos (auto) 0.00 Absolute Basos (auto) 0.00 Neutrophils % 83.4 H Lymphocytes % 11.8 L Monocytes % 4.1 Eosinophils % 0.5 L Basophils % 0.2 Sodium 140 Potassium 3.7 Chloride 105 Carbon Dioxide 25 Anion Gap 13.7 BUN 20 H Creatinine 0.81 BUN/Creatinine Ratio 24.7 H Random Glucose 166 H Serum Osmolality 285.8 Calcium 9.2 Total Bilirubin 0.5 AST 36 ALT 25 Alkaline Phosphatase 83 Creatine Kinase 109 CK-MB (CK-2) 4.5 H CK-MB (CK-2) % Not Reportable Troponin I < 0.02 B-Natriuretic Peptide 661.0 H* Serum Total Protein 6.4 Albumin 3.5 Globulin 2.9 Albumin/Globulin Ratio 1.2 01/27/17 13:25 WBC 8.4 RBC 3.89 L Hgb 11.1 L Hct 34.8 L MCV 89.4 MCH 28.5 MCHC 32.0 L RDW 15.7 H Plt Count 154 MPV 7.5 Absolute Neuts (auto) 6.30 Absolute Lymphs (auto) 1.20 Absolute Monos (auto) 0.80 Absolute Eos (auto) 0.00 Absolute Basos (auto) 0.00 Neutrophils % 75.5 Lymphocytes % 14.7 L Monocytes % 8.9 Eosinophils % 0.6 L Basophils % 0.3 Sodium Potassium Chloride Carbon Dioxide Anion Gap BUN Creatinine BUN/Creatinine Ratio Random Glucose Serum Osmolality Calcium Total Bilirubin AST ALT Alkaline Phosphatase Creatine Kinase CK-MB (CK-2) CK-MB (CK-2) % Troponin I B-Natriuretic Peptide Serum Total Protein Albumin Globulin Albumin/Globulin Ratio - EKG/XRAY/CT EKG: Sinus - 69 bpm with 1st degree AV block, occasional PVCs., no ST T wave changes Xray Comments: CT Head non-con - lg posterior scalp hematoma, no acute intracranial bleed CT: Head Non-Contrast CT Ordered: Yes - Head Non-Contrast Departure - Departure Clinical Impression: Chronic wound of extremity Fall Qualifiers: Encounter type: initial encounter Qualified Code(s): W19.XXXA - Unspecified fall, initial encounter Back pain Qualifiers: Back pain location: back pain in unspecified location Chronicity: acute Back pain laterality: unspecified Qualified Code(s): M54.9 - Dorsalgia, unspecified Abrasion of arm, left Qualifiers: Encounter type: initial encounter Qualified Code(s): S40.812A - Abrasion of left upper arm, initial encounter Hematoma of scalp Qualifiers: Encounter type: initial encounter Qualified Code(s): S00.03XA - Contusion of scalp, initial encounter Time of Disposition: 14:05 Disposition: Discharge to Home or Self Care Condition: Fair Departure Forms: ED Discharge - Pt. Copy, Patient Portal Self Enrollment Instructions: DI for Hematoma (Bruise), Fainting, DI for Syncope in Adults ( Fainting) Referrals: Mariano Staples MD [Primary Care Provider] - 1-2 Days RAYMON KEITH MD [Consulting Staff] - 1-5 Days Home Medications: Ambulatory Orders Estradiol 0.5 mg PO BEDTIME #0 07/29/15 Magnesium 400 mg PO DAILY 07/29/15 Multiple Vitamin [Multivitamins] 1 cap PO DAILY 07/29/15 Atorvastatin Calcium [Lipitor] 80 mg PO BEDTIME #30 tab 08/07/15 Aspirin [Baby Aspirin] 162 mg PO DAILY 11/24/16 Citalopram Hydrobromide [Celexa] 20 mg PO DAILY 11/24/16 Hydrochlorothiazide 25 mg PO DAILY 11/24/16 Magnesium Oxide [Magnesium] 500 mg PO DAILY 11/24/16 Memantine [Namenda] 10 mg PO DAILY 11/24/16 Metoprolol Succinate [Toprol Xl] 25 mg PO BID 11/24/16 Midodrine HCl 10 mg PO BID 11/24/16 Omeprazole 20 mg PO BID 11/24/16 Lisinopril [Prinivil] 5 mg PO DAILY #30 tablet 11/26/16 Nitroglycerin 0.4 mg Tab [Nitrostat] 1 ea SL Q5MIN PRN #1 bottle 11/26/16 Potassium Chloride Tab [K-Dur] 40 meq PO DAILY #60 tab 11/26/16 Potassium Chloride [K-Tab] 40 meq PO BID #120 tab 11/26/16 Additional Instructions: I recommend stopping Toprol XL for now until you speak further with your Financial Systems Administrator. Your Financial Systems Administrator may start it back up at the same or a lower dose if they feel it is safe for you to continue this medication. Also, it is important to stay well hydrated with water. Keep your wounds clean and dry. Follow-up with your primary care provider regarding your wounds. Return to ER if condition worsens.
[2017-01-27] MEDS ORDERED: SODIUM CHLORIDE 0.9% 1000ML 500 ML IVS ONE (12:37)
--- NOTE | 2017-01-27 12:59 | CT ---
EXAM DESCRIPTION: Head CLINICAL HISTORY: 86 years, Female, fall, hit head TECHNIQUE: 5mm slice thickness axial images through the brain were performed in the absence of intravenous contrast. This exam was performed according to our departmental dose-optimization program which includes use of Automated Exposure Control, adjustment of the mA and/or kV according to patient size and/or use of iterative reconstruction technique. COMPARISON: None. FINDINGS: A large soft tissue hematoma overlies the posterior calvarium. Involutional changes are present. Hypoattenuation involves the periventricular deep white matter. No hemorrhage is identified. The lateral ventricles are not out of proportion to the degree of involution. The basal cisterns are patent. Previous right-sided craniotomy. Vascular calcifications are present. The visualized paranasal sinuses and mastoid air cells are patent. No fracture is identified. IMPRESSION: No evidence of acute traumatic intracranial injury. Soft tissue injury. No fracture. Microvascular disease. Electronically signed by: Ashtyn Renae MD 01/27/2017 12:58 PM CDT
[2017-01-27 14:08] VITALS: BP 121/66
== END 2017-01-27 14:08 | disposition home or self-care (01) ==
LOC: ER 11:47
DX: S00.03XA Contusion of scalp, initial encounter (principal); S40.812A Abrasion of left upper arm, initial encounter; M54.89 Other dorsalgia; I10 Essential (primary) hypertension; K21.9 Gastro-esophageal reflux disease without esophagitis; Z79.82 Long term (current) use of aspirin; Z79.899 Other long term (current) drug therapy; W19.XXXA Unspecified fall, initial encounter; Z91.81 History of falling; Y92.009 Unspecified place in unspecified non-institutional (private) residence as the place of occurrence of the external cause
CPT/HCPCS: 36415; 70450; 80053; 81001; 82550; 82553; 83880; 84484; 85025; 93005; J7030

== ENCOUNTER → 2017-02-02 | Outpatient (CLI) | payer MEDICARE, OTHER ==
--- NOTE | 2017-02-02 15:18 | US ---
EXAM DESCRIPTION: Carotid Duplex CLINICAL HISTORY: SYNCOPE COMPARISON: CTA head 01/27/2017. TECHNIQUE: Transcutaneous scanning utilizing 2-dimensional and Doppler modes to evaluate the bilateral carotid systems and vertebral arteries. Percentage of diameter of stenosis or no stenosis recorded will be based upon NASCET criteria. FINDINGS: Peak systolic/end diastolic (CM-Sec) CCA Right 60/13 Left 58/11. ICA Right proximal 34/10, distal 54/12. Left proximal 47/13, Distal 42/12. Vertebral Right 38/8 Left 43/9. ECA (PS Only) Right 51 left 49. ICA/CCA peak systolic ratio: Right 0.9 Left 0.8 ICA/CCA end diastolic ratio: Right 0.9 Left 1.1 Vertebral arteries: antegrade flow. Comments: Minimal spectral broadening in the mid ICAs bilaterally. Minimal atherosclerotic calcification bilaterally. IMPRESSION: 1. Doppler evaluation of the bilateral carotid systems and vertebral arteries shows no hemodynamically significant stenoses. 2. No significant amount of plaque seen in the carotid arteries bilaterally. Bilateral vertebral arteries showed antegrade-cephalad flow. Electronically signed by: Jeremias Cedillo MD 02/02/2017 3:17 PM CDT
== END | disposition home or self-care (01) ==
LOC: EEVIPCON 11:07 → US 11:07
PROVIDERS: ATTEND Family Medicine
DX: R55 Syncope and collapse (principal)

== ENCOUNTER → 2017-02-28 | Outpatient (CLI) | payer MEDICARE, OTHER | LOC: LAB.O 12:59 | PROVIDERS: ATTEND Internal Medicine Nephrology | DX: N18.4 Chronic kidney disease, stage 4 (severe) (principal) ==

== ENCOUNTER → 2017-05-11 | Outpatient (CLI) | payer MEDICARE, OTHER ==
--- NOTE | 2017-05-14 03:59 | RAD ---
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 There is narrowing of the joint space with collar osteophytes and subchondral sclerosis. Mild degenerative changes of the left hip. No acute fracture or dislocation. Electronically signed by: Nik Long MD 05/14/2017 3:58 AM HYDROGEN OPERATOR
--- NOTE | 2017-05-14 04:00 | RAD ---
Examination: XR HIP 2 OR MORE VIEWS dated 05/11/2017 9:42 AM EXPORT FREIGHT SPECIALIST History: PAIN IN RIGHT HIP Comparison: 05/11/2016 Technique: Two views of the right hip FINDINGS AND IMPRESSION: Mildly progressed advanced degenerative changes of the right hip with joint space narrowing, osteophytosis, and subchondral sclerosis. No acute fracture or dislocation. Electronically signed by: Nik Long MD 05/14/2017 3:59 AM EXPORT FREIGHT SPECIALIST
== END ==
LOC: RAD 09:26
PROVIDERS: ATTEND Orthopaedic Surgery
DX: M25.551 Pain in right hip (principal); M12.851 Other specific arthropathies, not elsewhere classified, right hip

== ENCOUNTER → 2017-05-16 | Outpatient (CLI) | payer MEDICARE, OTHER | END | disposition home or self-care (01) | LOC: GMAM 15:48 | PROVIDERS: ATTEND Family Medicine | DX: N18.4 Chronic kidney disease, stage 4 (severe) (principal) ==

== ENCOUNTER 2017-06-09 16:32 | Emergency (ER) | payer MEDICARE, OTHER ==
[2017-06-09] MEDS ORDERED: cefTRIAXone SODIUM 1 GM VIAL ONE (17:45)
--- NOTE | 2017-06-09 18:50 | ED.PDOC ---
History of Present Illness - General Chief Complaint: Respiratory Problem Stated Complaint: dizziness, shortness of breath Time Seen by Provider: 06/09/17 18:48 Source: patient, family Exam Limitations: no limitations Additional Information: PT HAS HAD PERSISTENT COUGH FOR 13-14 DAYS. WAS SEEN HERE 2 DAYS AGO STARTED ON ZITHROMAX WITHOUT IMPROVEMENT. - History of Present Illness Timing/Duration: other - 14 DAYS Severity: mild Improving Factors: nothing, other - STARTED ON Z PACK, NO BETTER Worsening Factors: nothing Associated Symptoms: denies symptoms Allergies/Adverse Reactions: Allergies NO KNOWN ALLERGY Allergy (Verified 11/24/16 12:20) Home Medications: Ambulatory Orders Estradiol 0.5 mg PO BEDTIME #0 07/29/15 Magnesium 400 mg PO DAILY 07/29/15 Multiple Vitamin [Multivitamins] 1 cap PO DAILY 07/29/15 Atorvastatin Calcium [Lipitor] 80 mg PO BEDTIME #30 tab 08/07/15 Aspirin [Baby Aspirin] 162 mg PO DAILY 11/24/16 Citalopram Hydrobromide [Celexa] 20 mg PO DAILY 11/24/16 Hydrochlorothiazide 25 mg PO DAILY 11/24/16 Magnesium Oxide [Magnesium] 500 mg PO DAILY 11/24/16 Memantine [Namenda] 10 mg PO DAILY 11/24/16 Metoprolol Succinate [Toprol Xl] 25 mg PO BID 11/24/16 Midodrine HCl 10 mg PO BID 11/24/16 Omeprazole 20 mg PO BID 11/24/16 Lisinopril [Prinivil] 5 mg PO DAILY #30 tablet 11/26/16 Nitroglycerin 0.4 mg Tab [Nitrostat] 1 ea SL Q5MIN PRN #1 bottle 11/26/16 Potassium Chloride Tab [K-Dur] 40 meq PO DAILY #60 tab 11/26/16 Potassium Chloride [K-Tab] 40 meq PO BID #120 tab 11/26/16 Azithromycin 500 mg PO DAILY #5 tab 06/06/17 predniSONE [Prednisone] 20 mg PO DAILY #3 tab 06/06/17 Cefdinir [Omnicef] 300 mg PO BID 10 Days #20 cap 06/09/17 Review of Systems - Review of Systems Constitutional: Denies: chills, fever EENTM: States: no symptoms reported Respiratory: States: cough. Denies: orthopnea, short of breath, wheezing Cardiology: Denies: chest pain, palpitations Gastrointestinal/Abdominal: Denies: no symptoms reported Genitourinary: Denies: no symptoms reported Musculoskeletal: Denies: no symptoms reported Skin: Denies: no symptoms reported Neurological: States: other - C/O LIGHTHEADEDNESS AND DIZZINESS Endocrine: States: no symptoms reported Hematologic/Lymphatic: States: no symptoms reported Past Medical History (General) - Patient Medical History Hx Seizures: No Hx Stroke: No Hx Dementia: No Hx Asthma: No Hx of COPD: No Hx Cardiac Disorders: No Hx Congestive Heart Failure: No Hx Pacemaker: No Hx Hypertension: Yes Hx Thyroid Disease: No Hx Diabetes: No Hx Gastroesophageal Reflux: Yes Hx Renal Disease: No Hx Cancer: No Hx of HIV: No Hx Hepatitis C: No Hx MRSA: No - Vaccination History Hx Tetanus, Diphtheria Vaccination: No Hx Influenza Vaccination: No Hx Pneumococcal Vaccination: No - Social History Hx Tobacco Use: Yes Hx Chewing Tobacco Use: No Hx Alcohol Use: No Hx Substance Use: No Hx Substance Use Treatment: No Hx Depression: No Hx Physical Abuse: No Hx Emotional Abuse: No Hx Suspected Abuse: No - Female History Patient : No Family Medical History - Family History Brother Age (years): 80 Living Status: Hx Family Asthma: No Hx Family Congestive Heart Failure: No Hx Family Hypertension: No Hx Family Stroke: No Hx Cardiac Disease: No Hx Family Diabetes: Yes Hx Family Cancer: No Mother Family History: Unknown Age (years): 92 Living Status: Cause of : Cancer Hx Family Asthma: No Hx Family Congestive Heart Failure: No Hx Family Hypertension: Yes Hx Family Stroke: No Hx Cardiac Disease: Yes Hx Family Diabetes: Yes Hx Family Cancer: Yes - stomach Physical Exam - Physical Exam General Appearance: Alert, Frail, No apparent distress Eye Exam: bilateral normal Ears, Nose, Throat: hearing grossly normal, normal ENT inspection Neck: non-tender, full range of motion, supple Respiratory: lungs clear, normal breath sounds, other - SATS 100% ON RA (NL) Cardiovascular/Chest: regular rate, rhythm, no murmur Gastrointestinal/Abdominal: non tender, soft, no organomegaly Back Exam: normal inspection, no CVA tenderness Extremity: normal range of motion, non-tender Neurologic: alert, normal mood/affect Skin Exam: normal color, warm/dry Progress - EKG/XRAY/CT EKG: Sinus - RATE 63, 1ST DEGREE AV BLOCK, NL AXIS, , no ST T wave changes - NAIP, Changed from - 01/27/17, RESOLUTION OF PREVIOUSLY NOTED PVC'S XRAY: chest - SMALL LLL INFILTRATE Departure - Departure Clinical Impression: Pneumonia Qualifiers: Pneumonia type: due to unspecified organism Laterality: left Lung location: lower lobe of lung Qualified Code(s): J18.1 - Lobar pneumonia, unspecified organism Hypertension Qualifiers: Hypertension type: essential hypertension Qualified Code(s): I10 - Essential ( primary) hypertension Time of Disposition: 19:33 Disposition: Discharge to Home or Self Care Condition: Fair Departure Forms: ED Discharge - Pt. Copy, Patient Portal Self Enrollment Instructions: DI for Pneumonia -- Adult Referrals: Mariano Staples MD [Primary Care Provider] - 1-2 Weeks Prescriptions: Cefdinir [Omnicef] 300 mg PO BID 10 Days #20 cap Home Medications: Ambulatory Orders Estradiol 0.5 mg PO BEDTIME #0 07/29/15 Magnesium 400 mg PO DAILY 07/29/15 Multiple Vitamin [Multivitamins] 1 cap PO DAILY 07/29/15 Atorvastatin Calcium [Lipitor] 80 mg PO BEDTIME #30 tab 08/07/15 Aspirin [Baby Aspirin] 162 mg PO DAILY 11/24/16 Citalopram Hydrobromide [Celexa] 20 mg PO DAILY 11/24/16 Hydrochlorothiazide 25 mg PO DAILY 11/24/16 Magnesium Oxide [Magnesium] 500 mg PO DAILY 11/24/16 Memantine [Namenda] 10 mg PO DAILY 11/24/16 Metoprolol Succinate [Toprol Xl] 25 mg PO BID 11/24/16 Midodrine HCl 10 mg PO BID 11/24/16 Omeprazole 20 mg PO BID 11/24/16 Lisinopril [Prinivil] 5 mg PO DAILY #30 tablet 11/26/16 Nitroglycerin 0.4 mg Tab [Nitrostat] 1 ea SL Q5MIN PRN #1 bottle 11/26/16 Potassium Chloride Tab [K-Dur] 40 meq PO DAILY #60 tab 11/26/16 Potassium Chloride [K-Tab] 40 meq PO BID #120 tab 11/26/16 Azithromycin 500 mg PO DAILY #5 tab 06/06/17 predniSONE [Prednisone] 20 mg PO DAILY #3 tab 06/06/17 Cefdinir [Omnicef] 300 mg PO BID 10 Days #20 cap 06/09/17
--- NOTE | 2017-06-09 19:08 | RAD ---
EXAM: Chest,2 Views CLINICAL INDICATION: 86-year-old female with shortness of breath. TECHNIQUE: Two-view, PA and lateral projections of the chest were obtained. COMPARISON: Two-view chest 12/16/2016. FINDINGS: Stable cardiac and mediastinal silhouette. Heart size is normal. Tortuous atherosclerotic thoracic aorta. Hazy appearance of the bilateral lung bases and slight blunting of the posterior costophrenic angles suggesting small bilateral pleural effusion. Lungs are otherwise clear without focal opacity, pneumothorax. Large lung volumes suggesting chronic obstructive pulmonary disease. The visualized bones are within normal limits. IMPRESSION: 1. Large lung volumes suggesting chronic obstructive pulmonary disease. 2. Hazy appearance of the bilateral lung bases and blunting of the costophrenic angle suggest small pleural effusion. Electronically signed by: Lilly Ragsdale MD 06/09/2017 7:07 PM [facility]
[2017-06-09] MEDS: cefTRIAXone SODIUM 1 GM VIAL IM ONE (19:29)
[2017-06-09 19:44] VITALS: O2SAT 97
[2017-06-09 19:50] VITALS: BP 111/66; TEMP 98.7
== END 2017-06-09 19:50 | disposition home or self-care (01) ==
LOC: ER 16:32
DX: J18.1 Lobar pneumonia, unspecified organism (principal); I10 Essential (primary) hypertension; I44.0 Atrioventricular block, first degree; K21.9 Gastro-esophageal reflux disease without esophagitis; Z79.899 Other long term (current) drug therapy; Z79.82 Long term (current) use of aspirin
CPT/HCPCS: 71020; 81001; 93005; J0696

== ENCOUNTER 2017-06-27 05:50 | Day surgery (SDC) | payer MEDICARE, OTHER ==
[2017-06-27] MEDS ORDERED: LACTATED RINGERS 1,000 ML ONE (06:19)
[2017-06-27] MEDS ORDERED: BUPIVACAINE 0.25% INJ 30 ML VIAL INJ ONE (07:47)
[2017-06-27] MEDS ORDERED: LIDOCAINE 1% W/ EPINEPHRINE 20 ML VIAL INJ ONE (07:47)
[2017-06-27] MEDS ORDERED: methylPREDNISolone ACETATE 80 MG/ML VIAL ONE (07:47)
[2017-06-27] MEDS ORDERED: PROPOFOL 200 MG/20 ML VIAL IV ONE (10:00)
[2017-06-27 10:37] VITALS: BP 191/82; TEMP 97; O2SAT 95
--- NOTE | 2017-07-06 10:56 | OP ---
DATE OF PROCEDURE: 06/27/17 PREOPERATIVE DIAGNOSIS: 1. Right hip osteoarthritis. POSTOPERATIVE DIAGNOSIS: 1. Right hip osteoarthritis. PROCEDURE: 1. Intraarticular injection. SURGEON: Quincy Jacobo MD. GUEST ROOM INSPECTOR: Jeremias Hall CST, SA-C. ANESTHESIA: Conscious sedation. COMPLICATIONS: None. FINDINGS: Advanced osteoarthritis of the hip. INDICATION: The patient has a long history of pain in the hip associated with arthritis. Ms. Laughlin has had disruption of her daily activities and is requesting intraarticular injection. After discussing the risks, benefits and alternatives to operative therapy, the patient has given informed consent. PROCEDURE: The patient was brought to the Operating Room and placed in supine position. Conscious sedation was administered and the leg was flexed, abducted and externally rotated. The groin was prepped and fluoroscopic imaging was used to confirm needle placement into the hip joint through a medial portal. Once placement had been confirmed, a combination of lidocaine and Depo-Medrol were injected into the joint. After injection, the needle was withdrawn. Pressure was held on the injection site. A sterile band-aid was placed. The patient was then taken back to the Day Surgery Unit. POSTOPERATIVE INSTRUCTIONS: The patient will be weight-bearing as tolerated. The patient will followup with us in about 2 weeks. #[id number] [facility]
== END 2017-06-27 09:15 | disposition home or self-care (01) ==
LOC: AMB 05:50
PROVIDERS: ATTEND Orthopaedic Surgery
DX: M16.11 Unilateral primary osteoarthritis, right hip (principal); I10 Essential (primary) hypertension; I25.10 Atherosclerotic heart disease of native coronary artery without angina pectoris; Z79.82 Long term (current) use of aspirin; Z79.899 Other long term (current) drug therapy
CPT/HCPCS: 20610; 87070; 99156; 99157; J1030; J3490; J7120

== ENCOUNTER → 2017-08-06 | Outpatient (CLI) | payer MEDICARE, OTHER | LOC: GMAM 14:54 | PROVIDERS: ATTEND Family Medicine | DX: E87.6 Hypokalemia (principal) ==

== ENCOUNTER 2017-08-24 06:02 | Day surgery (SDC) | payer MEDICARE, OTHER ==
[2017-08-24] MEDS ORDERED: LACTATED RINGERS 1,000 ML ONE (06:40)
[2017-08-24] MEDS ORDERED: LIDOCAINE 1% 10 ML VIAL INJ ONE (07:08)
[2017-08-24] MEDS ORDERED: BUPIVACAINE 0.25% W/EPI 50 ML VIAL INJ ONE (07:08)
[2017-08-24] MEDS ORDERED: methylPREDNISolone ACETATE 80 MG/ML VIAL ONE (07:09)
[2017-08-24] MEDS ORDERED: fentaNYL CITRATE INJ 50 MCG/ML AMP ONE (07:36)
[2017-08-24 13:53] VITALS: BP 179/78; TEMP 98.5; O2SAT 98
--- NOTE | 2017-08-31 11:37 | OP ---
DATE OF PROCEDURE: 08/24/17 PREOPERATIVE DIAGNOSIS: 1. Osteoarthritis of the hip. POSTOPERATIVE DIAGNOSIS: 1. Osteoarthritis of the hip. PROCEDURE: 1. Injection under fluoroscopic imaging. SURGEON: Quincy Jacobo MD. HEALTH CENTER ASSOCIATE: Jeremias Hall CST, SA-C. ANESTHESIA: Conscious sedation. COMPLICATIONS: None. FINDINGS: Severe osteoarthritis of the hip. INDICATION: The patient has a long history of pain in the hip. Unfortunately, she has been unable to get significant relief. Because of the ongoing pain, we talked about options. After discussing the risks, benefits and alternatives to operative therapy, the patient has given informed consent for injection. PROCEDURE: The patient was brought to the Operating Room and placed in supine position. Conscious sedation was administered and the leg was flexed, abducted and externally rotated. The groin was prepped and fluoroscopic imaging was used to confirm needle placement into the hip joint through a medial portal. Once placement had been confirmed, a combination of lidocaine and Depo-Medrol were injected into the joint. After injection, the needle was withdrawn. Pressure was held on the injection site. A sterile band-aid was placed. The patient was then taken back to the Day Surgery Unit. POSTOPERATIVE INSTRUCTIONS: The patient will followup with us in approximately one week. #[id number] [facility]
== END 2017-08-24 09:10 | disposition home or self-care (01) ==
LOC: AMB 06:02
PROVIDERS: ATTEND Orthopaedic Surgery
DX: M16.11 Unilateral primary osteoarthritis, right hip (principal); I10 Essential (primary) hypertension; Z79.899 Other long term (current) drug therapy
CPT/HCPCS: 01200; 20611; 76000; J1030; J3010; J7120

== ENCOUNTER → 2017-08-30 | Outpatient (CLI) | payer MEDICARE, OTHER | LOC: GMATM 17:50 | PROVIDERS: ATTEND Nurse Practitioner Family | DX: N30.00 Acute cystitis without hematuria (principal) ==

== ENCOUNTER 2017-09-01 10:23 | Observation (INO) | payer MEDICARE, OTHER ==
[2017-09-01] MEDS ORDERED: IBUPROFEN 200 MG TAB PO ONE (10:45)
[2017-09-01] MEDS ORDERED: SODIUM CHLORIDE 0.9% 1000ML 500 ML IVS ONE (10:45)
--- NOTE | 2017-09-01 11:15 | RAD ---
PROCEDURE: XR CHEST 1 VIEW HISTORY: fever, weakness COMPARISON: 06/09/2017 TECHNIQUE: Single projection of the chest was done. FINDINGS: There are underlying changes of COPD . There are no discrete airspace infiltrates, pneumothoraces or pleural effusions. The pulmonary vascularity is normal. The cardiomediastinal silhouette is unremarkable for patient's age and sex. IMPRESSION: There is no acute pleural-parenchymal process seen in the imaged lung zhang. Location of Interpretation: Teleradiology Electronically signed by: Kirk Fuller MD 09/01/2017 11:13 AM CDT Workstation: [id number]
[2017-09-01] MEDS ORDERED: PIPERACILLIN/TAZOBACTAM 3.375 GM in SODIUM CHLORIDE 0.9% 100ML 100 ML IVPB ONE (11:49)
[2017-09-01] MEDS ORDERED: PIPERACILLIN/TAZOBACTAM 3.375 GM VIAL IVPB ONE (12:32)
[2017-09-01] MEDS ORDERED: SODIUM CHLORIDE 0.9% 100ML 100 ML IVPB ONE (12:32)
--- NOTE | 2017-09-01 14:26 | CT ---
EXAM DESCRIPTION: Abdomen/Pelvis w/Contrast CLINICAL HISTORY: 87 years Female high fever, incr lft 5d COMPARISON: Noncontrast abdominal CT dated January 15, 2017. TECHNIQUE: Intravenous contrast enhanced axial scans of the abdomen and pelvis were obtained. Sagittal and coronal reformatted images were performed. This exam was performed according to our departmental dose-optimization program, which includes automated exposure control, adjustment of the mA and/or kV according to patient size and/or use of iterative reconstruction technique. FINDINGS: The lung bases are essentially unremarkable except for minimal nodular density in the right costophrenic angle, probably due to subsegmental atelectasis or scarring, and slight posterior pleural thickening on each side. Since the previous study, there has been resolution of bilateral pleural effusions. There may be a small hiatus hernia versus a phrenic ampulla. Cholecystectomy clips are again noted. There is minimal biliary ductal prominence, in keeping with postcholecystectomy status. Extrahepatic bile ducts measure no more than about 7 mm. This is difficult to compare with the previous study because of lack of intravenous contrast on that examination. There is mild elongation of the right lobe of the liver, which appears otherwise essentially unremarkable. The spleen, kidneys, and adrenal glands are essentially unremarkable. A tiny cyst may be present in the lateral cortex of the left kidney. There appears to be some atrophic change in the proximal portion of the pancreas. No finding suspicious for pancreatitis. There is no evidence of ascites, obstructive uropathy, or significant para-aortic lymph node enlargement. Aorto iliac and other vascular calcifications are noted, with no evidence of abdominal aortic aneurysm. No abnormal masses or fluid collections are seen in the pelvis. The uterus is not identified and is presumably surgically absent. I cannot clearly identify the appendix, which may also be absent. There are a couple of isolated diverticula in the left colon, with no evidence of diverticulitis, bowel obstruction or significant thickening, or pneumoperitoneum. The unopacified urinary bladder is moderately distended but unremarkable. There are degenerative changes in the lower lumbar spine and the right hip. IMPRESSION: Postcholecystectomy changes and other minor findings and chronic changes as described above. Follow-up suggested as needed clinically. Electronically signed by: Willie Norman MD 09/01/2017 2:25 PM CDT
[2017-09-01] MEDS ORDERED: FLUCONAZOLE 100 MG TAB PO ONE (15:41)
--- NOTE | 2017-09-01 15:53 | ED.PDOC ---
History of Present Illness - General Chief Complaint: Fever Stated Complaint: Fever, generalized aches Time Seen by Provider: 09/01/17 10:44 Source: patient Exam Limitations: no limitations - History of Present Illness Initial Comments: the patient is an 87-year-old female presenting with something of a puzzling picture. The patient reports 5 days of fevers as well as sore throat. She was apparently diagnosed with a urinary tract infection 2 days ago and placed on Bactrim. I'm told by lab that that is growing enterococcus but sensitivities are still pending. She is not having any new pain anywhere. She had a hip injection with Dr. Jacobo one week ago and is not having any unusual pain or erythema at the site. She presented here today because she had gotten too weak to get out of bed. She apparently does live alone and function on her own normally. She has not been having any chest pain or shortness of breath. No syncope or near syncope. She has not been eating and drinking normally because she has been too weak to get out of bed. she presented with a fever today of 103.5. no altered mental status or headache. No nuchal rigidity or meningeal signs. No facial pain. No GI symptoms. Severity: moderate Improving Factors: nothing Worsening Factors: nothing Associated Symptoms: fever/chills, malaise, weakness Allergies/Adverse Reactions: Allergies NO KNOWN ALLERGY Allergy (Verified 11/24/16 12:20) Home Medications: Ambulatory Orders Estradiol 0.5 mg PO DAILY #0 07/29/15 Aspirin [Baby Aspirin] 81 mg PO DAILY 11/24/16 Citalopram Hydrobromide [Celexa] 40 mg PO DAILY 11/24/16 Magnesium Oxide [Magnesium] 400 mg PO BEDTIME 11/24/16 Metoprolol Succinate [Toprol Xl] 25 mg PO DAILY 11/24/16 Lisinopril [Prinivil] 5 mg PO DAILY #30 tablet 11/26/16 Calcium [Calcium Aspartate] 10 mg PO DAILY 08/23/17 Coenzyme Q10 (Ubidecarenone) [Ok Coq-10] 30 PO DAILY 08/23/17 Cyanocobalamin [Vitamin B-12] 1,000 mcg SL DAILY 08/23/17 Diphenhydramine-Acetaminophen [Tylenol Pm Extra Strength 500-25 mg] 500 PO BEDTIME 08/23/17 Potassium Chloride [Potassium Chloride ER] 20 meq PO BID 08/23/17 Review of Systems - Review of Systems Constitutional: States: fever, malaise, weakness - generalized EENTM: States: no symptoms reported Respiratory: States: no symptoms reported Cardiology: States: no symptoms reported Gastrointestinal/Abdominal: States: no symptoms reported Genitourinary: States: no symptoms reported Musculoskeletal: States: see HPI Skin: States: no symptoms reported Neurological: States: weakness - generalized Endocrine: States: no symptoms reported All other Systems: No Change from Baseline Past Medical History (General) - Patient Medical History Hx Seizures: No Hx Stroke: No Hx Dementia: No Hx Asthma: No Hx of COPD: No Hx Cardiac Disorders: No Hx Congestive Heart Failure: No Hx Pacemaker: No Hx Hypertension: Yes Hx Thyroid Disease: No Hx Diabetes: No Hx Gastroesophageal Reflux: Yes Hx Renal Disease: No Hx Cancer: No Hx of HIV: No Hx Hepatitis C: No Hx MRSA: No - Vaccination History Hx Tetanus, Diphtheria Vaccination: No Hx Influenza Vaccination: No Hx Pneumococcal Vaccination: No - Social History Hx Tobacco Use: No Hx Chewing Tobacco Use: No Hx Alcohol Use: No Hx Substance Use: No Hx Substance Use Treatment: No Hx Depression: No Hx Physical Abuse: No Hx Emotional Abuse: No Hx Suspected Abuse: No - Female History Patient : No Family Medical History - Family History Brother Age (years): 80 Living Status: Hx Family Asthma: No Hx Family Congestive Heart Failure: No Hx Family Hypertension: No Hx Family Stroke: No Hx Cardiac Disease: No Hx Family Diabetes: Yes Hx Family Cancer: No Mother Family History: Unknown Age (years): 92 Living Status: Cause of : Cancer Hx Family Asthma: No Hx Family Congestive Heart Failure: No Hx Family Hypertension: Yes Hx Family Stroke: No Hx Cardiac Disease: Yes Hx Family Diabetes: Yes Hx Family Cancer: Yes - stomach Physical Exam - Physical Exam General Appearance: Alert, No apparent distress Eye Exam: bilateral normal Ears, Nose, Throat: hearing grossly normal - chronically decreased bilaterally normal for her, other - osterior oropharynx does show some mild erythema and mild petechia Neck: full range of motion, supple Respiratory: lungs clear, normal breath sounds, no respiratory distress, no accessory muscle use Cardiovascular/Chest: normal peripheral pulses, no edema, tachycardia - mild Peripheral Pulses: radial,right: 2+, radial,left: 2+, dorsalis pedis,right: 2+, dorsalis pedis,left: 2+ Gastrointestinal/Abdominal: non tender, soft Rectal Exam: deferred Back Exam: normal inspection, no CVA tenderness, no vertebral tenderness Extremity: normal range of motion - for this patient, no pedal edema, no calf tenderness, normal capillary refill, other - ip injection site does not show any unusual swelling or erythema or tenderness palpation. Neurologic: metal lather II-XII nml as tested, alert, normal mood/affect, oriented x 3 Skin Exam: normal color - she does appear to bruise fairly easily Comments: Vital Signs - 8 hr 09/01/17 09/01/17 09/01/17 10:29 10:41 11:28 Temperature 103.5 F H Pulse Rate [ 107 H 111 H 111 H Left Radial] Respiratory 20 20 Rate Blood Pressure 149/68 137/61 137/64 [Right Arm] O2 Sat by Pulse 95 94 L 94 L Oximetry 09/01/17 09/01/17 11:34 12:33 Temperature Pulse Rate [ 102 H 85 Left Radial] Respiratory 20 18 Rate Blood Pressure 139/70 141/72 [Right Arm] O2 Sat by Pulse 96 Oximetry Progress - Progress Progress: 09/01/17 15:56 the patient is an 87-year-old female presenting to the emergency room secondary to fever and weakness essentially. The patient is of advanced age and does live by herself but was unable to function independently this morning and get out of bed. She is mildly to moderately dehydrated and is receiving small amounts of IV fluids. She does have mild acute renal insufficiency due to dehydration. The patient is feeling a little better when her temperature came down after Tylenol and Motrin. She does have a pharyngitis that tested negative for strep. Her urinalysis looks to be clearing up from her enterococcus infection that she has been taking Bactrim for. She does have a mild elevation in her liver function tests but CT scan of abdomen and pelvis did not show any acute pathology in that region. It is certainly possible she may have a mild viral hepatitis giving the symptoms but this will need to be followed. The patient was given 1 dose of Diflucan in case the pharyngitis is coming from an ascending esophageal yeast infection which could've been triggered by the recent steroid injection. Continued monitoring of the hip injection site may be warranted if her fever persists. At this point in time clinically it does not appear to be infected. The patient will likely need to be assessed by physical therapy tomorrow to see if she can safely be functional on her own at home assuming she is improving from the infection standpoint. In her current condition she is not independent in her activities of daily living. Blood culture has been taken. Further antibiotic adjustment may be warranted based on results of urinalysis culture. - Results/Orders Results/Orders: 09/01/17 10:58 BLOOD CULTURE Stat apid strep was negative Laboratory Results - last 24 hr 09/01/17 09/01/17 09/01/17 10:49 10:49 10:49 WBC 9.4 RBC 3.80 L Hgb 12.1 Hct 36.1 MCV 95.0 MCH 31.8 H MCHC 33.6 RDW 14.1 Plt Count 149 MPV 7.5 Absolute Neuts (auto) 8.60 H Absolute Lymphs (auto) 0.40 L Absolute Monos (auto) 0.40 Absolute Eos (auto) 0.10 Absolute Basos (auto) 0.00 Neutrophils % 91.1 H Lymphocytes % 4.2 L Monocytes % 3.8 Eosinophils % 0.6 L Basophils % 0.3 Sodium 136 Potassium 4.2 Chloride 106 Carbon Dioxide 23 Anion Gap 11.2 L BUN 21 H Creatinine 1.20 BUN/Creatinine Ratio 17.5 Random Glucose 131 H Serum Osmolality 276.7 Lactic Acid 1.9 Calcium 8.7 Total Bilirubin 1.1 H AST 141 H ALT 95 H Alkaline Phosphatase 107 Serum Total Protein 6.0 L Albumin 3.3 Globulin 2.7 Albumin/Globulin Ratio 1.2 Amylase 28 Lipase 16 L Urine Color Urine Appearance Urine pH Ur Specific [place] Urine Protein Urine Glucose (UA) Urine Ketones Urine Blood Urine Nitrite Urine Bilirubin Urine Urobilinogen Ur Leukocyte Esterase Urine RBC Urine WBC Ur Epithelial Cells Urine Bacteria Group A Strep DNA 09/01/17 09/01/17 11:36 13:00 WBC RBC Hgb Hct MCV MCH MCHC RDW Plt Count MPV Absolute Neuts (auto) Absolute Lymphs (auto) Absolute Monos (auto) Absolute Eos (auto) Absolute Basos (auto) Neutrophils % Lymphocytes % Monocytes % Eosinophils % Basophils % Sodium Potassium Chloride Carbon Dioxide Anion Gap BUN Creatinine BUN/Creatinine Ratio Random Glucose Serum Osmolality Lactic Acid Calcium Total Bilirubin AST ALT Alkaline Phosphatase Serum Total Protein Albumin Globulin Albumin/Globulin Ratio Amylase Lipase Urine Color Yellow Urine Appearance Clear Urine pH 7.0 Ur Specific [place] 1.015 Urine Protein Trace Urine Glucose (UA) Negative Urine Ketones Trace Urine Blood Trace-intact H Urine Nitrite Negative Urine Bilirubin Negative Urine Urobilinogen 0.2 Ur Leukocyte Esterase Negative Urine RBC 1-3 Urine WBC 0 Ur Epithelial Cells 0 Urine Bacteria 0 Group A Strep DNA Negative hest x-ray shows no acute pathology. Chronic changes are noted. CT of abdomen and pelvis shows no definitive acute pathology. Departure - Departure Clinical Impression: Fever in adult, Advanced age, Dehydration, Acute renal insufficiency, Inability to perform activities of daily living Pharyngitis Qualifiers: Pharyngitis/tonsillitis etiology: unspecified etiology Qualified Code(s): J02.9 - Acute pharyngitis, unspecified Disposition: Admit Patient Home Medications: Ambulatory Orders Estradiol 0.5 mg PO DAILY #0 07/29/15 Aspirin [Baby Aspirin] 81 mg PO DAILY 11/24/16 Citalopram Hydrobromide [Celexa] 40 mg PO DAILY 11/24/16 Magnesium Oxide [Magnesium] 400 mg PO BEDTIME 11/24/16 Metoprolol Succinate [Toprol Xl] 25 mg PO DAILY 11/24/16 Lisinopril [Prinivil] 5 mg PO DAILY #30 tablet 11/26/16 Calcium [Calcium Aspartate] 10 mg PO DAILY 08/23/17 Coenzyme Q10 (Ubidecarenone) [Ok Coq-10] 30 PO DAILY 08/23/17 Cyanocobalamin [Vitamin B-12] 1,000 mcg SL DAILY 08/23/17 Diphenhydramine-Acetaminophen [Tylenol Pm Extra Strength 500-25 mg] 500 PO BEDTIME 08/23/17 Potassium Chloride [Potassium Chloride ER] 20 meq PO BID 08/23/17 Decision To Admit - Decistion To Admit Decision to Admit Reason: Medical Nature Decision to Admit Date: 09/01/17 Decision to Admit Time: 16:02
--- NOTE | 2017-09-01 16:10 | HP ---
SUPERVISING PHYSICIAN: Nik Ramos M.D. CHIEF COMPLAINT: Fever. HISTORY OF PRESENT ILLNESS: Ms. Laughlin is an 87 year-old female patient that presented to the Emergency Room for generalized body aches with a fever. She noted that she had been having a fever and sore throat for over 5 days. She had recently been treated for a urinary tract infection within the last 2 days and started on Bactrim. Review of those cultures show that she had an Enterococcus species growing with cultures pending at time of this admission. She noted that she was not having any new pains anywhere and had just recently had a hip injection performed by Dr. Quincy Jacobo a week previously , but had no ongoing erythema to the site or any other concerning symptoms. She had noted that she basically came to the E. R. because she had gotten too weak to get out of bed. She had no reported chest pain, shortness of breath. No syncope or syncopal episodes. No nausea or vomiting. In the Emergency Room , she presented with an initial temperature of 103.5. Laboratory studies showed that she had a white count of 9,400 but a left shift. Urinalysis showed she had trace intact blood, otherwise within normal limits. Strep screen was shown to be negative. Chemistries showed she had a slightly elevated liver function with AST of 141, ALT of 95 but normal amylase and lipase. She also had initial radiographic studies including a chest x-ray in the Emergency Department and per radiology interpretation showed no acute pleural parenchymal processes. This was followed-up with an abdominal pelvic CT given the degree of temperature and per radiology interpretation there were no acute findings noted. She was given Motrin in the Emergency Department which did result in a good response to decrease in body temperature. Her lab also showed she had a normal lactic acid, but given concerns for an infectious process not yet identified, she was given a dose of Zosyn and Flagyl. The patient now is going to be placed in Observation overnight for some fluid replacement and close observation. The patient was placed in Observation in stable condition. PAST MEDICAL HISTORY: 1. Hypertension. 2. Hyperlipidemia. 3. Coronary artery disease. 4. Esophageal strictures. 5. 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 6. Gastroesophageal reflux disease. PAST SURGICAL HISTORY: 1. Cholecystectomy. 2. Tonsillectomy. 3. Hysterectomy. 4. Removal of intraabdominal adhesions. 5. Brain surgery due to intracerebral hemorrhage. HOME MEDICATIONS: 1. Potassium chloride 20 mEq b.i.d. 2. Toprol XL 25 mg daily. 3. Magnesium 400 mg at bedtime. 4. Lisinopril 5 mg daily. 5. Estradiol 0.5 mg daily. 6. Extra strength Tylenol PM 500 mg at bedtime. 7. Vitamin B12 1,000 mcg daily. 8. Ok CoQ-10, 30 daily. 9. Celexa 40 mg daily. 10. Calcium 10 mg daily. 11. Aspirin 81 mg daily. ALLERGIES: SOCIAL HISTORY: The patient is . She lives alone at home but does have caregivers. She denies any tobacco, alcohol or illicit drug use. REVIEW OF SYSTEMS: CONSTITUTIONAL: Noted in History of Present Illness, generalized weakness, malaise and fever. HEENT: Denies any ear aches, nasal congestion, but has reported had a sore throat over the last week. RESPIRATORY: Denies any shortness of breath, coughing or wheezing. CARDIOVASCULAR: Denies any chest pains, palpitations or syncopal episodes. GASTROINTESTINAL: Denies any abdominal pains, nausea, vomiting, diarrhea or constipation. GENITOURINARY: Recent treatment for a urinary tract infection within the last 3 days. Denies any urological symptoms. MUSCULOSKELETAL: As noted in History of Present Illness. NEUROLOGIC: Just notes generalized weakness but no focal neurological deficits , ataxia, seizures, headaches. PHYSICAL EXAMINATION: VITAL SIGNS: Initial temperature in the Emergency Department was 103.5, pulse 107, blood pressure 149/68, respirations 20, satting 95% on room air. Admission weight 77.0 kg. GENERAL: On admission to the Medical/Surgical floor, the patient appeared to be resting comfortably in no acute distress. Alert. HEENT: Tympanic membranes were clear bilaterally. Oropharynx showed posterior pharynx with some moderate to mild erythema and some petechial hemorrhages noted throughout the palate. NECK: Non-tender, full range of motion. Supple without any jugular venous distention. CHEST: Lungs are clear to auscultation bilaterally without any rhonchi, wheezing or rales. CARDIOVASCULAR: Regular rate and rhythm without appreciable murmurs, gallops, or rubs. ABDOMEN: Soft, non-tender. Positive bowel sounds. EXTREMITIES: No clubbing, cyanosis or edema. The injection site from previous procedure shows to be without any significant findings. No erythema or tenderness. NEUROLOGIC: She is alert and oriented times three. Cranial nerves II-XII are grossly intact. Facial feature were symmetrical. Extraocular movements are within normal limits. There was no notable nystagmus. INTEGUMENT: Skin was warm and dry with several areas of old ecchymosis to upper and lower extremities. LABORATORY: CBC shows white count 9,400 with hemoglobin 12.1, hematocrit 36.1, platelet count 149,000. Differential did show a left shift. Chemistries showed normal electrolytes, potassium 4.2, BUN 21, creatinine 1.2, glucose 131, lactic acid 1.9, calcium 8.7. Liver functions showed a slightly elevated bilirubin at 1.1 with an elevated AST of 141, ALT of 95. Amylase and lipase were both normal. Urinalysis just showed trace intact blood. Strep screen by PCR was negative. MICROBIOLOGY: Strep culture is pending. Blood culture is pending. Review of previous urinary culture performed on 08/30/17 showed gram positive cocci preliminary Enterococcus species with final sensitivity pending. RADIOLOGY: Chest x-ray was without any acute findings. CT of the abdomen without any acute findings. Please see those reports for full details. ASSESSMENT: 1. Fever likely secondary to acute pharyngitis with Streptococcus screen being negative with cultures pending. 2. Mild dehydration secondary to fever. 3. Acute renal insufficiency with prerenal azotemia likely from recent administration of Bactrim for underlying urinary tract infection. 4. Recent treatment for urinary tract infection on Bactrim with preliminary cultures showing Enterococcus species with final report pending. 5. History of hypertension. 6. History of gastroesophageal reflux disease. 7. History of esophageal strictures. 8. History of coronary artery disease with hyperlipidemia. 9. History of cerebral hemorrhage approximately 2011. 10. Mild elevation of liver enzymes, uncertain etiology, possibly secondary to recent administration of Tylenol for fevers. PLAN: The patient will be placed in Observation status tonight for general rehydration an additional antibiotic coverage with Rocephin. She was given a single dose of Diflucan with concerns for possible esophageal yeast infection and Zoysn in the ED.. Will start her on some IV fluids tonight and continue with Rocephin for additional coverage, and await final culture results in the morning. Will repeat laboratory studies in the morning to include a CMP and CBC , and anticipate possible discharge tomorrow with length of stay estimated to be to 2 days. She will be given Motrin for any fevers as noted with the recent elevation of her acute liver functions with close monitoring. Until clinical stable on discharge, will continue to monitor and treat appropriately. #[id number] [facility]
[2017-09-01] MEDS ORDERED: ACETAMINOPHEN 325 MG TAB PO PRN (17:07)
[2017-09-01] MEDS ORDERED: SODIUM CHLORIDE 0.9% (FLUSH) 10 ML SYG IV PRN (17:07)
[2017-09-01] MEDS ORDERED: IV SET AND CAP CHANGE INJ INJ SCH (17:30)
[2017-09-01] MEDS ORDERED: KCL 20 MEQ/NS 1,000 ML IVS PRN (18:56)
[2017-09-01] MEDS ORDERED: BIFIDOBACTERIUM INFANTIS 4 MG CAP ONE (19:15)
[2017-09-01] MEDS ORDERED: cefTRIAXone SODIUM 1 GM VIAL ONE (19:16)
[2017-09-01] MEDS ORDERED: SODIUM CHL 0.9% 50ML MIN-BAG+ 50 ML IVPB ONE (19:16)
[2017-09-01] MEDS ORDERED: IBUPROFEN 400 MG TAB PO PRN (19:21)
[2017-09-01] MEDS: cefTRIAXone SODIUM 1 GM in SODIUM CHL 0.9% 50ML MIN-BAG+ 50 ML IVPB SCH (19:42)
[2017-09-01] MEDS ORDERED: TEMAZEPAM 15 MG CAP PO PRN (19:51)
[2017-09-01] MEDS ORDERED: MAGNESIUM OXIDE 400 MG TAB ONE (20:48)
[2017-09-01] MEDS ORDERED: POTASSIUM CHLORIDE 20 MEQ TAB ONE (20:48)
[2017-09-01] MEDS ORDERED: NON-FORMULARY MEDICATION 1 EA MIS (Potassium Chloride [Potassium Chloride Er] 20 MEQ) PO SCH (21:00)
[2017-09-01] MEDS ORDERED: MAGNESIUM OXIDE 400 MG PO SCH (21:00)
[2017-09-02] MEDS ORDERED: SODIUM CHL 0.9% 50ML MIN-BAG+ 50 ML IVPB ONE (08:20)
[2017-09-02] MEDS ORDERED: cefTRIAXone SODIUM 1 GM VIAL ONE (08:21)
[2017-09-02] MEDS: cefTRIAXone SODIUM 1 GM in SODIUM CHL 0.9% 50ML MIN-BAG+ 50 ML IVPB SCH (08:31)
[2017-09-02] MEDS ORDERED: METOPROLOL SUCCINATE XL 25 MG TAB PO SCH (09:00)
[2017-09-02] MEDS ORDERED: ESTRADIOL TAB 1 MG PO SCH (09:00)
[2017-09-02] MEDS ORDERED: LISINOPRIL 5 MG TAB PO SCH (09:00)
[2017-09-02] MEDS ORDERED: ASPIRIN (CHEWABLE) 81 MG TAB PO SCH (09:00)
[2017-09-02] MEDS ORDERED: CITALOPRAM HBR 20 MG TAB PO SCH (09:00)
[2017-09-02] MEDS ORDERED: CALCIUM CARBONATE-VITAMIN D 500 MG TAB PO SCH (09:00)
[2017-09-02] MEDS ORDERED: CYANOCOBALAMIN 1,000 MCG TAB PO SCH (09:00)
[2017-09-02 10:47] VITALS: BP 110/69; TEMP 98.1; O2SAT 93
[2017-09-02] MEDS ORDERED: POTASSIUM CHLORIDE 20 MEQ TAB PO SCH (17:00)
[2017-09-02] MEDS ORDERED: MAGNESIUM OXIDE 400 MG TAB PO SCH (21:00)
[2017-09-02] MEDS ORDERED: BIFIDOBACTERIUM INFANTIS 4 MG CAP PO SCH (21:00)
--- NOTE | 2017-09-03 08:44 | DS ---
SUPERVISING PHYSICIAN: Nik Raoms MD DISCHARGE DIAGNOSIS: 1. Febrile illness secondary to acute pharyngitis, possibly viral in nature with the patient being afebrile prior to discharge. 2. Mild dehydration secondary to fever, showing improvement with IV fluids. 3. Acute renal insufficiency, likely prerenal azotemia, improving with administration of fluids with some notable exacerbation from Bactrim from previous underlying urinary tract infection. 4. Recent treatment for urinary tract infection on Bactrim with cultures showing an Enterococcus species with urine on admission without any significant findings. 5. Elevation of liver enzymes, uncertain etiology, possibly secondary to recent viral infection and fever with the patient having been on frequent Tylenol for fever and generalized body aches in the recent past with enzymes showing return to baseline status after administration of fluids which could have been exacerbation from dehydration at time of discharge. Negative mono spot and hepatitis panel pending. 6. History of hypertension. 7. History of gastroesophageal reflux disease. 8. History of esophageal strictures. 9. History of coronary artery disease with hyperlipidemia. 10. History of cerebral hemorrhage approximately 2011. REASON FOR HOSPITALIZATION: Ms. Laughlin is an 87 year-old female patient that presented to the Emergency Room on 09/01/17 for generalized body aches with a fever. She noted that she had been having a fever and sore throat for over 5 days. She had recently been treated for a urinary tract infection within the last 2 days and started on Bactrim. Review of those cultures show that she had an Enterococcus species with repeat urinalysis showing no sign of infection. She noted in the past week that she had a hip injection under anesthesia and had a sore throat since that point. She denied any ongoing worsening of pain or swelling to the area of injection. She had noted that she basically came to the Emergency Room because she had gotten too weak to get out of bed without assistance. She had no reported chest pain, shortness of breath. No syncope or syncopal episodes. No nausea or vomiting. In the Emergency Room, she presented with an initial temperature of 103.5. Laboratory studies showed that she had a white count of 9,400 but a left shift. Urinalysis showed she had trace intact blood, otherwise within normal limits. Strep screen was shown to be negative. Chemistries showed elevated liver functions with AST of 141, ALT of 95 but normal amylase and lipase. She also had chest x-ray in the Emergency Department and per radiology interpretation showed no acute pleural parenchymal processes. This was followed-up with an abdominal pelvic CT given the degree of temperature and per radiology interpretation there were no acute findings noted. She was given Motrin in the Emergency Department which did result in a good response with normalization of her temperature prior to admission. Her lab also showed she had a normal lactic acid, but given concerns for an infectious process and prior to admission , she was given a single dose of Zosyn and Flagyl. The patient now is going to be placed in Observation overnight for some fluid replacement and close observation. LABORATORY: White count on admission was 9,400 and at discharge was 6,300. Hemoglobin at discharge was 11.8, hematocrit 35,1. Platelet count 126,000. Differential did show a left shift initially, but this resoled prior to discharge. Chemistries showed normal electrolytes both on admission and discharge with BUN 14, creatinine 0.64 at discharge. Calcium 8.9, lactic acid 1.9. Liver functions were elevated on admission with total bilirubin 1.1, at discharge 1.7. AST went from 141 to 88, ALT from 95 to 81, and alkaline phosphatase was normal initially on admission at 107, but elevated at 138 prior to discharge. Amylase and lipase were both within normal limits. Urinalysis showed trace intact blood, otherwise within normal limits. She had a hepatitis panel pending at time of discharge. [place] screen was negative. Group A strep was negative. MICROBIOLOGY: Influenza swab for A and B were negative. Throat culture for group A was no group A isolated at 24 hours. Blood cultures remained negative at 24 hours. RADIOLOGY: Initially in the Emergency Room, she had a chest x-ray which showed no acute acute pleural or parenchymal processes noted. This was a followed up with a CT of the abdomen and pelvis with contrast and per radiologic interpretation showed chronic changes as noted in the full report, but no acute findings. Please see that report for details. HOSPITAL COURSE: Ms. Ariana Laughlin was admitted on 09/01/17 as noted above. In the Emergency Room, she was given Motrin for her fever which did show good resolution with no recurrence of fever prior to discharge. She was given a dose of Zosyn and Flagyl prior to assessment with CT of the abdomen. She was also given IV fluids and showed good response treatment. It was felt on the morning of discharge on 09/02/17 that the patient had demonstrated a safety level as such and was now afebrile that she could be discharged home to continue with close monitoring in the outpatient setting. PLAN: Ms. Laughlin was discharged on 09/02/17 with instructions to followup with Dr. Staples this following week to further address the elevated liver enzymes. She was to avoid Tylenol and to take Motrin as needed for pain. She was to resume all of her medications as instructed prior to admission. Activity was to increase as tolerated. Diet was as tolerated. Condition on discharge was stable and improved. #[id number] [facility]
== END 2017-09-02 11:10 | disposition home or self-care (01) ==
LOC: ER 10:23 → MS 16:09
PROVIDERS: ADMIT Nurse Practitioner Family; ATTEND Nurse Practitioner Family
DX: E86.0 Dehydration (principal); N28.9 Disorder of kidney and ureter, unspecified; N39.0 Urinary tract infection, site not specified; B95.2 Enterococcus as the cause of diseases classified elsewhere; J02.9 Acute pharyngitis, unspecified; R50.9 Fever, unspecified; R74.8 Abnormal levels of other serum enzymes; I10 Essential (primary) hypertension; K21.9 Gastro-esophageal reflux disease without esophagitis; I25.10 Atherosclerotic heart disease of native coronary artery without angina pectoris; E78.5 Hyperlipidemia, unspecified; Z79.82 Long term (current) use of aspirin; Z79.899 Other long term (current) drug therapy
CPT/HCPCS: 36415 ×4; 71045; 74177; 80053 ×2; 80074; 81001; 82150; 83605; 83690; 85025 ×2; 86403; 87040 ×2; 87070; 87651; 87804; 94760 ×2; 96365; 96367; 96376; 99284; G0378; J0696 ×2; J2543; J3480; J7030; J7050 ×3

== ENCOUNTER → 2017-09-10 | Outpatient (CLI) | payer MEDICARE, OTHER | END | disposition home or self-care (01) | LOC: GMAM 16:42 | PROVIDERS: ATTEND Family Medicine | DX: R80.9 Proteinuria, unspecified (principal) ==

== ENCOUNTER → 2017-10-22 | Outpatient (CLI) | payer MEDICARE, OTHER | LOC: GMAM 13:23 | PROVIDERS: ATTEND Family Medicine | DX: Z01.818 Encounter for other preprocedural examination (principal); R23.3 Spontaneous ecchymoses; N30.00 Acute cystitis without hematuria; I10 Essential (primary) hypertension ==

== ENCOUNTER → 2018-01-01 | Outpatient (CLI) | payer MEDICARE, OTHER | LOC: GMAM 11:01 | PROVIDERS: ATTEND Family Medicine | DX: E53.8 Deficiency of other specified B group vitamins (principal); R53.82 Chronic fatigue, unspecified; F34.1 Dysthymic disorder; E55.9 Vitamin D deficiency, unspecified ==

== ENCOUNTER → 2018-03-14 | Outpatient (CLI) | payer MEDICARE, OTHER ==
--- NOTE | 2018-03-15 07:18 | RAD ---
EXAM: Pelvis and hip CLINICAL HISTORY: Pain COMPARISON STUDY: May 11, 2017 TECHNICAL: AP pelvis and 2 views of the left hip FINDINGS: The pelvic ring is intact and negative. Both hips are in anatomic alignment. The right hip prosthesis is seated There is no identifiable fracture. There is no acute osseous abnormality. There are mild degenerative changes of the left hip without joint space loss. There are mild osteophytic changes on both sides of the joint. IMPRESSION: 1. No acute fracture or dislocation. 2. Mild degenerative changes of the left hip. 3. Right hip prosthesis is seated and in alignment. Electronically signed by: Rey Perez MD 03/15/2018 7:16 AM CDT
== END ==
LOC: RAD 10:04
PROVIDERS: ATTEND Orthopaedic Surgery
DX: M25.552 Pain in left hip (principal); Z96.641 Presence of right artificial hip joint

== ENCOUNTER 2018-05-24 12:09 | Emergency (ER) | payer MEDICARE, OTHER ==
--- NOTE | 2018-05-24 12:36 | ED.PDOC ---
History of Present Illness - General Chief Complaint: Trauma Stated Complaint: Fall w/abrasion to posterior head Time Seen by Provider: 05/24/18 12:25 Source: patient, family Exam Limitations: no limitations Additional Information: PT FELL BACKWARDS STRIKING THE BACK OF HER HEAD. NO LOC BUT DAUGHTER WAS CONCERNED B/C SHE TAKES 81MG ASA AND HAS HAD SUBDURAL IN PAST. - History of Present Illness Timing/Duration: other - 45 MIN [employer]PH[employer] Severity: mild Improving Factors: nothing Worsening Factors: nothing Associated Symptoms: denies symptoms Allergies/Adverse Reactions: Allergies NO KNOWN ALLERGY Allergy (Verified 09/01/17 17:22) Home Medications: Ambulatory Orders Estradiol 0.5 mg PO DAILY #0 07/29/15 Aspirin [Baby Aspirin] 81 mg PO DAILY 11/24/16 Citalopram Hydrobromide [Celexa] 40 mg PO DAILY 11/24/16 Magnesium Oxide [Magnesium] 400 mg PO BEDTIME 11/24/16 Metoprolol Succinate [Toprol Xl] 25 mg PO DAILY 11/24/16 Lisinopril [Prinivil] 5 mg PO DAILY #30 tablet 11/26/16 Calcium [Calcium Aspartate] 10 mg PO DAILY 08/23/17 Coenzyme Q10 (Ubidecarenone) [Ok Coq-10] 30 mg PO DAILY 08/23/17 Cyanocobalamin [Vitamin B-12] 1,000 mcg SL DAILY 08/23/17 Potassium Chloride [Potassium Chloride ER] 20 meq PO BID 08/23/17 Acetaminophen W/ Codeine [Tylenol W/ CODEINE #3] 1 ea PO Q6HR PRN #8 05/24/18 Atorvastatin Calcium [Lipitor] 10 mg PO DAILY 05/24/18 Desvenlafaxine Succinate [Pristiq] 50 mg PO DAILY 05/24/18 Estradiol 0.5 mg PO DAILY 05/24/18 Review of Systems - Review of Systems Constitutional: States: other - NO LOC. Denies: chills, fever EENTM: Denies: blurred vision, nose congestion Respiratory: Denies: short of breath Cardiology: Denies: chest pain, syncope Gastrointestinal/Abdominal: Denies: nausea, vomiting Genitourinary: States: no symptoms reported Musculoskeletal: Denies: back pain, neck pain Skin: States: other - ABRASIONS Neurological: Denies: numbness, tingling, weakness Endocrine: States: no symptoms reported Hematologic/Lymphatic: States: no symptoms reported Past Medical History (General) - Patient Medical History Hx Seizures: No Hx Stroke: No Hx Dementia: No Hx Asthma: No Hx of COPD: No Hx Cardiac Disorders: Yes - Hypercholesterolemia Hx Congestive Heart Failure: Yes Hx Pacemaker: No Hx Hypertension: Yes Hx Thyroid Disease: No Hx Diabetes: No Hx Gastroesophageal Reflux: Yes Hx Renal Disease: No Hx Cancer: No Hx of HIV: No Hx Hepatitis C: No Hx MRSA: No Hx Other PMH: Yes - HX SUBDURAL HEMATOMA Surgical History: other - EVACUATION OF SUBDURAL - Vaccination History Hx Tetanus, Diphtheria Vaccination: No Hx Influenza Vaccination: No Hx Pneumococcal Vaccination: No - Social History Hx Tobacco Use: No Hx Chewing Tobacco Use: No Hx Alcohol Use: No Hx Substance Use: No Hx Substance Use Treatment: No Hx Depression: No Hx Physical Abuse: No Hx Emotional Abuse: No Hx Suspected Abuse: No - Female History Patient : No Family Medical History - Family History Brother Age (years): 80 Living Status: Hx Family Asthma: No Hx Family Congestive Heart Failure: No Hx Family Hypertension: No Hx Family Stroke: No Hx Cardiac Disease: No Hx Family Diabetes: Yes Hx Family Cancer: No Mother Family History: Unknown Age (years): 92 Living Status: Cause of : Cancer Hx Family Asthma: No Hx Family Congestive Heart Failure: No Hx Family Hypertension: Yes Hx Family Stroke: No Hx Cardiac Disease: Yes Hx Family Diabetes: Yes Hx Family Cancer: Yes - stomach Physical Exam - Physical Exam General Appearance: Alert, No apparent distress, Well Developed, Well Nourished Eye Exam: bilateral normal Ears, Nose, Throat: other - SMALL ABRASION TO POST OCCIPUT Neck: non-tender, full range of motion, supple, normal inspection Respiratory: lungs clear, no respiratory distress Cardiovascular/Chest: regular rate, rhythm, no murmur Gastrointestinal/Abdominal: non tender, soft, no organomegaly Back Exam: normal inspection, no vertebral tenderness Extremity: normal range of motion, other - SMALL ABRASION L ELBOW, NO TTP, NO BONY DEFORMITY, NVI, NO ABRASIONS TO KNEES. EXT O/W ATRAUMATIC Neurologic: no motor/sensory deficits, normal mood/affect, oriented x 3 Skin Exam: normal color, warm/dry, rash - ABRASIONS NOTED Lymphatic: no adenopathy Progress - EKG/XRAY/CT CT: HEAD, REBEKAH, CERVICAL SPINE, REBEKAH. Departure - Departure Clinical Impression: Abrasion of scalp Qualifiers: Encounter type: initial encounter Qualified Code(s): S00.01XA - Abrasion of scalp, initial encounter Abrasion of elbow Qualifiers: Encounter type: initial encounter Laterality: right Qualified Code(s): S50.311A - Abrasion of right elbow, initial encounter Hypertension Qualifiers: Hypertension type: essential hypertension Qualified Code(s): I10 - Essential (primary) hypertension Time of Disposition: 14:24 Disposition: Discharge to Home or Self Care Condition: Good Departure Forms: ED Discharge - Pt. Copy, Patient Portal Self Enrollment Instructions: Minor Head Injury, Wound Care (DC) Referrals: Mariano Staples MD [Primary Care Provider] - 1-2 Weeks Prescriptions: Acetaminophen W/ Codeine [Tylenol W/ CODEINE #3] 1 ea PO Q6HR PRN #8 PRN Reason: Pain Home Medications: Ambulatory Orders Estradiol 0.5 mg PO DAILY #0 07/29/15 Aspirin [Baby Aspirin] 81 mg PO DAILY 11/24/16 Citalopram Hydrobromide [Celexa] 40 mg PO DAILY 11/24/16 Magnesium Oxide [Magnesium] 400 mg PO BEDTIME 11/24/16 Metoprolol Succinate [Toprol Xl] 25 mg PO DAILY 11/24/16 Lisinopril [Prinivil] 5 mg PO DAILY #30 tablet 11/26/16 Calcium [Calcium Aspartate] 10 mg PO DAILY 08/23/17 Coenzyme Q10 (Ubidecarenone) [Ok Coq-10] 30 mg PO DAILY 08/23/17 Cyanocobalamin [Vitamin B-12] 1,000 mcg SL DAILY 08/23/17 Potassium Chloride [Potassium Chloride ER] 20 meq PO BID 08/23/17 Acetaminophen W/ Codeine [Tylenol W/ CODEINE #3] 1 ea PO Q6HR PRN #8 05/24/18 Atorvastatin Calcium [Lipitor] 10 mg PO DAILY 05/24/18 Desvenlafaxine Succinate [Pristiq] 50 mg PO DAILY 05/24/18 Estradiol 0.5 mg PO DAILY 05/24/18
--- NOTE | 2018-05-24 13:39 | CT ---
EXAM DESCRIPTION: Head: Computed Tomography. CLINICAL HISTORY: FALL WITH HEAD TRAUMA. Patient fell backwards at ground-level striking head and neck. COMPARISON: CT scan of the head without contrast 01/27/2017. TECHNIQUE: Non-helical axial scans through the skull and brain, at 5 x 20 mm intervals, non-contrast. 2.5 x 20 mm axial reconstruction and sagittal and coronal 2.0 mm reconstructions. Total Exam DLP: 967.47 mGy-cm. This exam was performed according to our departmental dose-optimization program which includes automated exposure control, adjustment of the mA and/or kV according to patient size and/or use of iterative reconstruction technique; to reduce radiation dose to as low as reasonably achievable (ALARA). FINDINGS: No hemorrhage, no mass-effect, and no midline shift. Minimal bilateral periventricular low-density in the frontal and parietal lobes appear symmetric. Also minimal bilateral basal ganglia low-density. Stable since the prior study no abnormal radiodense material in the brain parenchyma. Vascular calcifications anterior circulation are stable.; physiologic calcifications in the pineal gland and choroid plexus. No effacement or displacement of the ventricles, CSF spaces, or subdural spaces. No extra axial fluid collection or hemorrhage. No gross abnormalities of the bony calvarium. Prior posterior right frontal [place] hole and prior craniotomy more superiorly. Chronic periosteal thickening sphenoid air cells. Bilateral daina bullosa in the middle turbinates are stable. Posterior scalp vertex midline soft tissue swelling. IMPRESSION: 1. No hemorrhage, no mass effect, no midline shift. 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 Stable since the prior study. 2. CT scans are insensitive for detecting small CVAs in the first 24 hours after onset. Evaluation of the brain stem is also limited. If symptoms persist, consider NON-EMERGENT MRI scan of the brain with diffusion imaging. 3. Posterior vertex scalp midline soft tissue swelling consistent with history. 4. Stable postcraniotomy changes right frontal and parietal bones with [place] hole. Electronically signed by: Jeremias Cedillo MD 05/24/2018 1:37 PM CHAIR
--- NOTE | 2018-05-24 14:00 | CT ---
EXAM DESCRIPTION: Cervical Spine: Computed Tomography. CLINICAL HISTORY: 87 years Female FALL WITH HEAD TRAUMA COMPARISON: CT scan of the head without contrast. TECHNIQUE: Spiral, axial 2.5 x 2.5 mm scans through the cervical spine without contrast. Coronal and sagittal 2.0 mm Reconstructions. Total Exam DLP: 371.2 mGy-cm. This exam was performed according to our departmental dose-optimization program which includes automated exposure control, adjustment of the mA and/or kV according to patient size and/or use of iterative reconstruction technique; to reduce radiation dose to as low as reasonably achievable (ALARA). FINDINGS: Minimal narrowing of the atlantoaxial joint. No fracture. Atlantooccipital joints are symmetric. Minimal narrowing of the left C1 to joint space. Mastoid air cells are unremarkable. Mucoperiosteal thickening in the left sphenoid air cell. Facet arthrosis on the left at C2-3, C3-4, C4-5 and C7-T1. Facet arthrosis on the right at C3-4 and C4-5. Facets are intact bilaterally with no perching or locking. Pedicles are intact. No vertebral body compression or fracture lines at any level. Trace retrolisthesis at C5-6. No significant spondylolisthesis. Neural foraminal narrowing on the right at C6-7 and C5-6 by uncinate spurs. Narrowing on the left at C5-6 due to uncinate spurs. No canal stenosis at any level. IMPRESSION: 1. No fracture or deformity of the vertebral bodies, or posterior elements. No posttraumatic neural foraminal or canal stenosis. 2. 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 No posttraumatic spondylolisthesis. Electronically signed by: Jeremias Cedillo MD 05/24/2018 1:58 PM [facility]
[2018-05-24 14:48] VITALS: BP 146/80; TEMP 98; O2SAT 95
== END 2018-05-24 14:34 | disposition home or self-care (01) ==
LOC: ER 12:09
DX: S00.01XA Abrasion of scalp, initial encounter (principal); S50.311A Abrasion of right elbow, initial encounter; I11.0 Hypertensive heart disease with heart failure; M47.812 Spondylosis without myelopathy or radiculopathy, cervical region; E78.00 Pure hypercholesterolemia, unspecified; I50.9 Heart failure, unspecified; K21.9 Gastro-esophageal reflux disease without esophagitis; Z79.82 Long term (current) use of aspirin; Z79.899 Other long term (current) drug therapy; W18.39XA Other fall on same level, initial encounter; Y92.9 Unspecified place or not applicable

== ENCOUNTER → 2018-06-24 | Outpatient (CLI) | payer MEDICARE, OTHER | LOC: CANPRECLI → GMAM 16:44 | PROVIDERS: ATTEND Family Medicine | DX: E53.8 Deficiency of other specified B group vitamins (principal); I10 Essential (primary) hypertension; E55.9 Vitamin D deficiency, unspecified ==

== ENCOUNTER 2018-06-26 00:07 | Inpatient (IN) | payer MEDICARE, OTHER ==
[2018-06-26] MEDS ORDERED: IBUPROFEN 200 MG TAB PO ONE (00:20)
[2018-06-26] MEDS ORDERED: diphenhydrAMINE HCL 25 MG CAP PO ONE (00:21)
[2018-06-26] MEDS ORDERED: predniSONE 20 MG TAB PO ONE (00:21)
--- NOTE | 2018-06-26 00:42 | RAD ---
CHEST 06/26/2018 CLINICAL HISTORY: Fever COMPARISON: Chest 09/01/2017 TECHNIQUE: [AP] Chest. FINDINGS: The heart is mildly enlarged. Mild aortic atherosclerosis. There is an irregular right infrahilar opacity. This was present on prior exam but appears more conspicuous than reference exam. Lungs are hyperinflated. Remaining lungs are clear. No pneumothorax. No pleural fluid. Unremarkable soft tissues. Slight levoconvex lower thoracic spine curve. IMPRESSION: 1. Right infrahilar opacity may represent progression of scar versus atelectasis or a small focus of pneumonitis. Electronically signed by: Kassi Watson DO 06/26/2018 12:41 AM [facility]
[2018-06-26] MEDS ORDERED: PIPERACILLIN/TAZOBACTAM 3.375 GM in SODIUM CHLORIDE 0.9% 100ML 100 ML IVPB ONE (01:08)
[2018-06-26] MEDS ORDERED: SODIUM CHLORIDE 0.9% 1000ML 1,000 ML IVS ONE (01:08)
[2018-06-26] MEDS ORDERED: SODIUM CHLORIDE 0.9% 100ML 100 ML IVPB ONE (01:15)
[2018-06-26] MEDS ORDERED: PIPERACILLIN/TAZOBACTAM 3.375 GM VIAL IVPB ONE (01:15)
--- NOTE | 2018-06-26 02:55 | ED.PDOC ---
History of Present Illness - General Chief Complaint: General Stated Complaint: shaking and weakness Time Seen by Provider: 06/26/18 00:19 Source: patient Exam Limitations: no limitations - History of Present Illness Initial Comments: The patient is an 87-year-old female presenting to the emergency room secondary to generalized weakness and fever this evening. The patient has had a cough and did see her primary care doctor earlier today for urinary tract infection symptoms. She was placed on Bactrim and took one dose however then she remembered that she is supposedly allergic to Bactrim. The patient has a fever more than 102 upon arrival here. She does have mild right mid lung rales. She is very weak and does require assistance with standing. She is not hypoxic. She is very frail and old. Timing/Duration: 24 hours Severity: severe Improving Factors: nothing Worsening Factors: nothing Associated Symptoms: diaphoresis, fever/chills, loss of appetite, malaise, weakness Allergies/Adverse Reactions: Allergies NO KNOWN ALLERGY Allergy (Verified 09/01/17 17:22) Home Medications: Ambulatory Orders Estradiol 0.5 mg PO DAILY #0 07/29/15 Aspirin [Baby Aspirin] 81 mg PO DAILY 11/24/16 Citalopram Hydrobromide [Celexa] 40 mg PO DAILY 11/24/16 Magnesium Oxide [Magnesium] 400 mg PO BEDTIME 11/24/16 Metoprolol Succinate [Toprol Xl] 25 mg PO DAILY 11/24/16 Lisinopril [Prinivil] 5 mg PO DAILY #30 tablet 11/26/16 Calcium [Calcium Aspartate] 10 mg PO DAILY 08/23/17 Coenzyme Q10 (Ubidecarenone) [Ok Coq-10] 30 mg PO DAILY 08/23/17 Cyanocobalamin [Vitamin B-12] 1,000 mcg SL DAILY 08/23/17 Potassium Chloride [Potassium Chloride ER] 20 meq PO BID 08/23/17 Atorvastatin Calcium [Lipitor] 10 mg PO DAILY 05/24/18 Desvenlafaxine Succinate [Pristiq] 50 mg PO DAILY 05/24/18 Estradiol 0.5 mg PO DAILY 05/24/18 Review of Systems - Review of Systems Constitutional: States: chills, diaphoresis, fever, malaise, weakness - generalized EENTM: States: nose congestion Respiratory: States: cough Cardiology: States: no symptoms reported Gastrointestinal/Abdominal: States: no symptoms reported Genitourinary: States: dysuria, frequency Musculoskeletal: States: no symptoms reported Skin: States: no symptoms reported Neurological: States: headache - mild, weakness - generalized Endocrine: States: no symptoms reported All other Systems: No Change from Baseline Past Medical History (General) - Patient Medical History Hx Seizures: No Hx Stroke: Yes Hx Dementia: No Hx Asthma: No Hx of COPD: No Hx Cardiac Disorders: Yes - Hypercholesterolemia Hx Congestive Heart Failure: Yes Hx Pacemaker: No Hx Hypertension: Yes Hx Thyroid Disease: No Hx Diabetes: No Hx Gastroesophageal Reflux: Yes Hx Renal Disease: No Hx Cancer: No Hx of HIV: No Hx Hepatitis C: No Hx MRSA: No Surgical History: appendectomy, cholecystectomy, Hysterectomy - Vaccination History Hx Tetanus, Diphtheria Vaccination: No Hx Influenza Vaccination: No Hx Pneumococcal Vaccination: No - Social History Hx Tobacco Use: No Hx Chewing Tobacco Use: No Hx Alcohol Use: No Hx Substance Use: No Hx Substance Use Treatment: No Hx Depression: No Hx Physical Abuse: No Hx Emotional Abuse: No Hx Suspected Abuse: No - Female History Patient is a Female of Child Bearing Age (10 -59 yrs old): No Patient : No - Triage Comment ED Triage Comment: Became shaky and weak, believes after taking bactrim, but no record of allergies. Treated for UTI, diagnosed 06/24 at PCP Family Medical History - Family History Brother Age (years): 80 Living Status: Hx Family Asthma: No Hx Family Congestive Heart Failure: No Hx Family Hypertension: No Hx Family Stroke: No Hx Cardiac Disease: No Hx Family Diabetes: Yes Hx Family Cancer: No Mother Family History: Unknown Age (years): 92 Living Status: Cause of : Cancer Hx Family Asthma: No Hx Family Congestive Heart Failure: No Hx Family Hypertension: Yes Hx Family Stroke: No Hx Cardiac Disease: Yes Hx Family Diabetes: Yes Hx Family Cancer: Yes - stomach Physical Exam - Physical Exam General Appearance: Alert, Frail, Ill Appearing Eye Exam: bilateral normal Ears, Nose, Throat: hearing grossly normal, normal pharynx, nasal congestion Neck: full range of motion, supple Respiratory: no respiratory distress, no accessory muscle use, other - she is mildly tachypneic and does have some very mild right mid lung rales. Cardiovascular/Chest: normal peripheral pulses, no edema, other - regular rate Peripheral Pulses: radial,right: 2+, radial,left: 2+, dorsalis pedis,right: 2+, dorsalis pedis,left: 2+ Gastrointestinal/Abdominal: non tender, soft Rectal Exam: deferred Back Exam: normal inspection, no CVA tenderness Extremity: normal range of motion, no pedal edema, no calf tenderness, normal capillary refill, other - the patient is very weak Neurologic: cost specialist II-XII nml as tested, alert, oriented x 3 Skin Exam: pallor Comments: Vital Signs - 24 hr 06/26/18 06/26/18 06/26/18 00:22 01:47 02:10 Temperature 101.8 F H 102.4 F H Pulse Rate [ 75 94 H 90 Right] Respiratory 20 18 18 Rate Blood Pressure 153/76 139/69 159/76 [Left Arm] O2 Sat by Pulse 96 95 Oximetry Progress - Progress Progress: 06/26/18 02:57 the patient is an 87-year-old female presents to emergency room secondary to fever, chills and generalized weakness. She was already known to have a urinary tract infection found earlier today by her primary care doctor. Additionally she has been found to have a right infrahilar pneumonia on chest x- ray and she does appear to be septic based on CMS criteria with a lactic acidosis, fever with a source. She would also likely be tachycardic as well if it weren't for the metoprolol. The patient is receiving an IV fluid bolus. blood cultures and sputum cultures are being done. Urine cultures being done. She is being placed on Zosyn currently as an antibiotic. She is not hypoxic at this time but this does need to be followed. She is very weak and unable to perform her activities of daily living in her current state. She is a very advanced age and high risk for significant deterioration. Admit for further care for above reasons. - Results/Orders Results/Orders: Laboratory Tests 06/26/18 06/26/18 06/26/18 00:20 00:30 00:30 WBC 6.2 RBC 4.06 L Hgb 12.5 Hct 38.3 MCV 94.3 MCH 30.7 MCHC 32.7 L RDW 14.2 Plt Count 163 MPV 7.2 L Absolute Neuts (auto) 5.80 Absolute Lymphs (auto) 0.20 L Absolute Monos (auto) 0.20 Absolute Eos (auto) 0.00 Absolute Basos (auto) 0.00 Neutrophils % 92.8 H Lymphocytes % 3.4 L Monocytes % 3.1 Eosinophils % 0.5 L Basophils % 0.2 Sodium 134 L Potassium 3.8 Chloride 104 Carbon Dioxide 23 Anion Gap 10.8 L BUN 22 H Creatinine 1.09 BUN/Creatinine Ratio 20.2 H Random Glucose 147 H Serum Osmolality 274.3 L Lactic Acid 2.9 H* Calcium 9.0 Total Bilirubin 0.2 AST 222 H ALT 83 H Alkaline Phosphatase 82 Serum Total Protein 5.9 L Albumin 3.3 Globulin 2.6 Albumin/Globulin Ratio 1.3 Urine Color Urine Appearance Urine pH Ur Specific [place] Urine Protein Urine Glucose (UA) Urine Ketones Urine Blood Urine Nitrite Urine Bilirubin Urine Urobilinogen Ur Leukocyte Esterase Urine RBC Urine WBC Ur Epithelial Cells Urine Bacteria 06/26/18 02:10 WBC RBC Hgb Hct MCV MCH MCHC RDW Plt Count MPV Absolute Neuts (auto) Absolute Lymphs (auto) Absolute Monos (auto) Absolute Eos (auto) Absolute Basos (auto) Neutrophils % Lymphocytes % Monocytes % Eosinophils % Basophils % Sodium Potassium Chloride Carbon Dioxide Anion Gap BUN Creatinine BUN/Creatinine Ratio Random Glucose Serum Osmolality Lactic Acid Calcium Total Bilirubin AST ALT Alkaline Phosphatase Serum Total Protein Albumin Globulin Albumin/Globulin Ratio Urine Color Yellow Urine Appearance Sl cloudy Urine pH 6.0 Ur Specific [place] 1.020 Urine Protein Negative Urine Glucose (UA) Negative Urine Ketones Trace Urine Blood Trace-intact H Urine Nitrite Negative Urine Bilirubin Negative Urine Urobilinogen 0.2 Ur Leukocyte Esterase Trace H Urine RBC 3-5 H Urine WBC 10-20 H Ur Epithelial Cells 5-10 Urine Bacteria 1+ apid flu is negative. Chest x-ray shows right infrahilar infiltrate Departure - Departure Clinical Impression: Advanced age, Generalized weakness, Inability to perform activities of daily living Right middle lobe pneumonia Qualifiers: Pneumonia type: due to unspecified organism Qualified Code(s): J18.1 - Lobar pneumonia, unspecified organism Sepsis Qualifiers: Sepsis type: sepsis due to unspecified organism Qualified Code(s): A41.9 - Sepsis, unspecified organism Urinary tract infection Qualifiers: Urinary tract infection type: acute cystitis Hematuria presence: without hematuria Qualified Code(s): N30.00 - Acute cystitis without hematuria Disposition: Admit Patient Condition: Serious Departure Forms: ED Discharge - Pt. Copy, Patient Portal Self Enrollment Referrals: Mariano Staples MD [Primary Care Provider] - 1-2 Weeks Home Medications: Ambulatory Orders Estradiol 0.5 mg PO DAILY #0 07/29/15 Aspirin [Baby Aspirin] 81 mg PO DAILY 11/24/16 Citalopram Hydrobromide [Celexa] 40 mg PO DAILY 11/24/16 Magnesium Oxide [Magnesium] 400 mg PO BEDTIME 11/24/16 Metoprolol Succinate [Toprol Xl] 25 mg PO DAILY 11/24/16 Lisinopril [Prinivil] 5 mg PO DAILY #30 tablet 11/26/16 Calcium [Calcium Aspartate] 10 mg PO DAILY 08/23/17 Coenzyme Q10 (Ubidecarenone) [Ok Coq-10] 30 mg PO DAILY 08/23/17 Cyanocobalamin [Vitamin B-12] 1,000 mcg SL DAILY 08/23/17 Potassium Chloride [Potassium Chloride ER] 20 meq PO BID 08/23/17 Atorvastatin Calcium [Lipitor] 10 mg PO DAILY 05/24/18 Desvenlafaxine Succinate [Pristiq] 50 mg PO DAILY 05/24/18 Estradiol 0.5 mg PO DAILY 05/24/18 Decision To Admit - Decistion To Admit Decision to Admit Reason: Medical Nature Decision to Admit Date: 06/26/18 Decision to Admit Time: 03:01
--- NOTE | 2018-06-26 03:30 | HP ---
SUPERVISING PHYSICIAN: Armani Villegas MD CHIEF COMPLAINT: Shaking and weakness. HISTORY OF PRESENT ILLNESS: This is an 87-year-old female patient who came to the Emergency Room due to generalized weakness as well as high temperature in the past several hours. She has also had a cough and she saw her primary care physician earlier for urinary tract infection symptoms. She was given Bactrim and took one dose, however, she then remembered she was supposedly allergic to Bactrim and stopped taking it. The patient had a fever of more than 102. She had some rales in her right mid lungs. She was very weak and required assistance with walking and standing. Her vital signs initially showed a temperature of 101.8 that went up to 102.4, heart rate 94, blood pressure 139/69, respiratory rate 20, O2 saturation 94% on room air. Blood cultures were done. Nose swab was done for influenza A and B by PCR and were both negative. Labs showed WBC 6.2 with a left shift on differential, hemoglobin 12.5, hematocrit 38.3. Sodium 134, potassium 3.8, chloride 104, carbon dioxide 23, BUN 22, creatinine 1.09. Glucose 147, serum osmolality 274.3, lactic acid 2.9, AST 222, ALT 83, alkaline phosphatase 82, serum protein 5.9. On her urinalysis, she had a trace of intact urine blood, trace of urine leukocyte esterase, 3 to 5 urine RBCs and 10 to 20 urine WBCs. Blood cultures were drawn and urine culture was ordered. Her chest x-ray showed right infrahilar opacity, may be a progression of scar versus atelectasis or a small focus of pneumonitis. She was given Levaquin as well as several breathing treatments. She also got some fluids and some prednisone. She was admitted to the Floor for sepsis related to pneumonia and urinary tract infection as well as elevated fever. PAST MEDICAL HISTORY: 1. Hypertension. 2. Hyperlipidemia. 3. Coronary artery disease. 4. Esophageal strictures. 5. History of previous cerebral hemorrhage approximately six years ago. 6. Gastroesophageal reflux disease. PAST SURGICAL HISTORY: 1. Cholecystectomy. 2. Tonsillectomy. 3. Hysterectomy. 4. Removal of intraabdominal adhesions. 5. Brain surgery due to intracerebral hemorrhage. HOME MEDICATIONS: 1. Calcium. 2. Citalopram. 3. Coenzyme Q10. 4. Cyanocobalamin. 5. Estradiol. 6. Aspirin. 7. Atorvastatin. 8. Pristiq. 9. Lisinopril. 10. Magnesium oxide. 11. Metoprolol. 12. Potassium chloride. ALLERGIES: SULFA. SOCIAL HISTORY: She is . She lives at home alone, but she does have caregivers. She denies any tobacco, alcohol or illicit drug use. It is to be noted she is in the process of moving to [place] to be with her son as she has just sold her home. REVIEW OF SYSTEMS: GENERAL: Positive for fever, weakness. Negative for weight changes. HEENT: Negative for sinus symptoms, ear pain, vision changes or sore throat. RESPIRATORY: Positive for coughing and some mild shortness of breath. Negative for wheezing. CARDIAC: Negative for chest pain, palpitations or tachycardia. GASTROINTESTINAL: Negative for nausea, vomiting, diarrhea, constipation or abdominal pain. GENITOURINARY: Positive for recent treatment of urinary tract infection as well as dysuria. Negative for polyuria or hematuria. MUSCULOSKELETAL: Positive for arthralgias, myalgias. NEUROLOGIC: Positive for generalized weakness. Negative for headache or seizures. PHYSICAL EXAMINATION: VITAL SIGNS: Temperature is now 98.5. Heart rate 101. Blood pressure 101/56. Respiratory rate 18. O2 saturation 93% on room air. GENERAL: This is an 87-year-old female patient who is sitting up on the side of her bed. She is in no acute distress. HEENT: Normocephalic, atraumatic. Pupils are equal and reactive. Oropharynx is clear. NECK: Supple without mass. RESPIRATORY: A few scattered rhonchi throughout with no wheezing or rales. CHEST: There is equal rise and fall of the chest with inspiration and expiration. CARDIOVASCULAR: Regular rate and rhythm. GASTROINTESTINAL: Abdomen is soft, nondistended, nontender. Bowel sounds are positive. EXTREMITIES: No cyanosis, clubbing or edema. NEUROLOGIC: She is hard of hearing and she gets mildly confused at times, but re-orients easily. She is oriented times three. Cranial nerves II-XII are grossly intact. INTEGUMENT: Warm and dry. LABORATORY: Labs and films are as per history of present illness. IMPRESSION: 1. Sepsis related to pneumonia, most likely community acquired with a temperature of 102.4, heart rate 102, lactic acid 2.9. Normal WBC, but she has a left shift on differential. We cannot rule out the recent urinary tract infection contributing to her septicemia. 2. Urinary tract infection recently treated with Bactrim with the patient showing a possible allergy to sulfa. 3. Elevated temperature of 102.4 with negative influenza per PCR, but cannot rule out viral illness. 4. History of hypertension, stable on medications. 5. History of gastroesophageal reflux disease, stable on medications. 6. History of esophageal stricture, stable. 7. History of coronary artery disease with hyperlipidemia on medications. 8. History of intracerebral hemorrhage in 2011. 9. Mild elevation of liver enzymes with a history of mildly elevated liver enzymes with no recent history of a workup. PLAN: We will admit the patient to the hospital. We will initiate pneumonia orders with aggressive pulmonary hygiene. She will be on Lovenox for deep venous thrombosis prophylaxis as well as proton pump inhibitor for ulcer prophylaxis. I will continue with the Levaquin as well as scheduled and p.r.n. breathing treatments. I have restarted her home medications and repeated lab and x-ray for in the morning. We will continue to monitor the patient closely and follow as needed. #[id number] [facility]
[2018-06-26] MEDS ORDERED: KCL 20MEQ/D5NS 1,000 ML IVS PRN (06:17)
[2018-06-26] MEDS ORDERED: ONDANSETRON INJ 4 MG/2 ML VIAL IV PRN (06:18)
[2018-06-26] MEDS ORDERED: SODIUM CHLORIDE 0.9% (FLUSH) 10 ML SYG IV PRN (06:18)
[2018-06-26] MEDS ORDERED: MAGNESIUM HYDROXIDE 30 ML UD PO PRN (06:18)
[2018-06-26] MEDS ORDERED: ACETAMINOPHEN 325 MG TAB PO PRN (06:18)
[2018-06-26] MEDS ORDERED: levoFLOXacin 750MG IV 750 MG in PREMIX BAG 1 BAG IVPB SCH (06:30)
[2018-06-26] MEDS: IV SET AND CAP CHANGE INJ INJ SCH (06:31)
[2018-06-26] MEDS: PANTOPRAZOLE SODIUM IV 40 MG VIAL IV SCH (06:36)
[2018-06-26] MEDS ORDERED: ESTRADIOL TAB 1 MG PO ONE (07:38)
[2018-06-26] MEDS ORDERED: NON-FORMULARY MEDICATION 1 EA MIS (Potassium Chloride [Potassium Chloride Er] 20 MEQ) PO SCH (09:00)
[2018-06-26] MEDS ORDERED: ESTRADIOL 0.5 MG PO SCH (09:00)
[2018-06-26] MEDS ORDERED: POTASSIUM CHLORIDE 10 MEQ TAB PO ONE (09:21)
[2018-06-26] MEDS: ENOXAPARIN SODIUM 40 MG/0.4 ML SYG SUBCU SCH (09:25)
[2018-06-26] MEDS: METOPROLOL SUCCINATE XL 25 MG TAB PO SCH (09:26)
[2018-06-26] MEDS: ASPIRIN (CHEWABLE) 81 MG TAB PO SCH (09:26)
[2018-06-26] MEDS: OSELTAMIVIR 75 MG CAP PO SCH ×2 (09:26→20:29)
[2018-06-26] MEDS: LISINOPRIL 5 MG TAB PO SCH (09:26)
[2018-06-26] MEDS: ATORVASTATIN 10 MG TAB PO SCH ×2 (09:26→20:29)
[2018-06-26] MEDS: NON-FORMULARY MEDICATION 1 EA MIS (Desvenlafaxine Succinate [Pristiq] 50 MG) PO SCH (09:27)
[2018-06-26] MEDS ORDERED: levoFLOXacin 500MG IV 100 ML IVPB ONE (11:42)
[2018-06-26] MEDS: levoFLOXacin 500MG IV 500 MG in PREMIX BAG 1 BAG IVPB SCH (11:44)
[2018-06-26] MEDS: MAGNESIUM OXIDE 400 MG TAB PO SCH (20:29)
[2018-06-26] MEDS: POTASSIUM CHLORIDE 20 MEQ TAB PO SCH (20:29)
[2018-06-26] MEDS ORDERED: TEMAZEPAM 15 MG CAP PO PRN (21:29)
[2018-06-27] MEDS: PANTOPRAZOLE SODIUM IV 40 MG VIAL IV SCH (06:10)
--- NOTE | 2018-06-27 07:10 | RAD ---
EXAM DESCRIPTION: Chest,2 Views CLINICAL HISTORY: 87 years Female Pneumonia COMPARISON: Portable chest 06/26/2018 TECHNIQUE: PA and lateral views of the chest are obtained. FINDINGS: Heart: The heart is mildly enlarged. Vasculature: There is mild tortuosity and atherosclerosis of the aorta. The pulmonary vascularity is normal. Mediastinum: Unremarkable otherwise. No evidence of mass or adenopathy. Lungs: There is a spiculated density projecting in the right lower lung, probably in the right middle lobe as the right heart border is partially obscured. It appears more discrete and slightly larger than on remote previous studies This lesion measures 1.5 cm. [] Pleural spaces: There are no pleural effusions. There are no pneumothoraces. Osseous structures: The bones appear demineralized. There are degenerative changes of the spine. There is no evidence of acute fracture, osseous destruction or osteoblastic lesions. Tubes and catheters: None. Upper abdomen: No acute findings. [] IMPRESSION: No acute cardiopulmonary abnormality. Right infrahilar density, probably in the right middle lobe could represent an area of scarring/cicatricial atelectasis. Slow-growing malignancy is not excludable. CT chest is recommended. Remainder of findings as described above. Electronically signed by: Natali Lockwood MD 06/27/2018 7:09 AM DISC PAD GRINDER
[2018-06-27] MEDS: ASPIRIN (CHEWABLE) 81 MG TAB PO SCH (08:18)
[2018-06-27] MEDS: POTASSIUM CHLORIDE 20 MEQ TAB PO SCH ×2 (08:18→21:08)
[2018-06-27] MEDS: ESTRADIOL TAB 1 MG PO SCH (08:19)
[2018-06-27] MEDS: OSELTAMIVIR 75 MG CAP PO SCH ×2 (08:20→21:08)
[2018-06-27] MEDS: METOPROLOL SUCCINATE XL 25 MG TAB PO SCH (08:20)
[2018-06-27] MEDS: LISINOPRIL 5 MG TAB PO SCH (08:20)
[2018-06-27] MEDS: ENOXAPARIN SODIUM 40 MG/0.4 ML SYG SUBCU SCH (08:21)
[2018-06-27] MEDS: NON-FORMULARY MEDICATION 1 EA MIS (Desvenlafaxine Succinate [Pristiq] 50 MG) PO SCH (08:22)
[2018-06-27] MEDS: CITALOPRAM HBR 20 MG TAB PO SCH (08:22)
[2018-06-27] MEDS ORDERED: levoFLOXacin 500MG IV 100 ML IVPB ONE (09:53)
--- NOTE | 2018-06-27 11:15 | CT ---
EXAM DESCRIPTION: Chest w/Contrast CLINICAL HISTORY: 87 years Female, questionable mass per Radiology COMPARISON: 16 December 2016, chest x-ray dated 27 June 2018 TECHNIQUE: Transaxial images were obtained with intravenous contrast media. Sagittal and coronal reconstruction was performed.This exam was performed according to our departmental dose-optimization program, which includes automated exposure control, adjustment of the mA and/or kV according to patient size and/or use of iterative reconstruction technique. FINDINGS: Cyst in the inferior aspect of the right thyroid lobe remain unchanged from the previous CT no pathologic axillary adenopathy is observed. No hilar or mediastinal adenopathy is seen. A right pleural effusion is observed. No adrenal masses are detected. Interstitial scarring is observed at the right lung apex. A small right lower lobe pulmonary nodule is observed measuring 7.8 mm in diameter. It also can be identified on the previous exam and remains unchanged. Some atelectatic type infiltrate is observed in the right middle lobe. Feel this represents the abnormality seen on chest film. Degenerative changes are seen in the thoracic spine. IMPRESSION: 1. Infiltrate is observed in the right middle lobe and is felt represent the abnormality seen on chest x-ray. 2. Right pleural effusion. 3. A 7.8 mm right lower lobe pulmonary nodules observed and remains unchanged from the remote CT. Electronically signed by: Francisco Flores MD 06/27/2018 11:13 AM RIP SAW OPERATOR
[2018-06-27] MEDS: levoFLOXacin 500MG IV 500 MG in PREMIX BAG 1 BAG IVPB SCH (11:54)
--- NOTE | 2018-06-27 13:13 | PN ---
SUPERVISING PHYSICIAN: Armani Villegas MD DATE: 06/27/18 SUBJECTIVE: The patient is lying in bed. She has family at the bedside. She feels better than she did yesterday. I discussed the results of her CAT scan as well as her labs. She continues to feel slightly weak, but other than that, all her symptoms have improved. OBJECTIVE: VITAL SIGNS: Temperature 97.9. Heart rate 75. Blood pressure 131/77. Respiratory rate 16. O2 saturation 94% on room air. RESPIRATORY: A few scattered rhonchi throughout the upper airfields. Somewhat diminished at the bases, slightly more prominent on the right than the left. No wheezing noted. CARDIAC: Regular rate and rhythm. GASTROINTESTINAL: Abdomen is soft, nondistended, nontender. Bowel sounds are positive. NEUROLOGIC: Awake, alert and oriented times three. LABORATORY: WBCs 7.5, hemoglobin 11.0, hematocrit 33.9. She continues to have a left shift on her differential. Electrolytes are basically within normal limits. Preliminary blood cultures show no growth after 24 hours. Urine culture is pending. She had a chest x-ray that said no acute cardiopulmonary abnormality with a right infrahilar density, probably of the right middle lobe, could represent scarring or cicatricial atelectasis. Slow growing malignancy is not excludable. CT of the chest is recommended. CT of the chest showed 1) Infiltrate is observed in the right middle lobe and is thought to represent the abnormality seen seen on chest x-ray. 2) Right pleural effusion. 3) 7.8 mm right lower lobe nodule observed, remains unchanged from the remote CT. All other labs and films have been reviewed via the EMR. ASSESSMENT: 1. Sepsis related to pneumonia, most likely community acquired, with a temperature of 102.4, heart rate 102, lactic acid 2.1 on admission. WBCs were normal, but she has a left shift on differential. We cannot rule out the recent urinary tract infection contributed to her septicemia. 2. Urinary tract infection recently treated with Bactrim with the patient showing a possible allergy to sulfas. 3. Elevated temperature of 102.4 with negative influenza A and B per PCR, but cannot rule out other viral illness. 4. History of hypertension, stable on medications. 5. History of gastroesophageal reflux disease, stable on medications. 6. History of esophageal stricture, stable. 7. History of coronary artery disease with hyperlipidemia on medications. 8. History of intracerebral hemorrhage in 2012. 9. Mild elevation of liver enzymes with a history of mildly elevated liver enzymes with no recent history of a workup. PLAN: We will continue present supportive care. We will continue with the pneumonia guidelines including good pulmonary hygiene. She will continue on her Levaquin. We will monitor her cultures as they become available. I have held on lab and films for tomorrow. We will see how she improves clinically. I expect she can be discharged on Sunday if she continues to improve. We will continue to monitor the patient closely and follow as needed. #[id number] [facility]
[2018-06-27] MEDS ORDERED: ALPRAZolam 0.25 MG TAB PO PRN (18:30)
[2018-06-27] MEDS: ATORVASTATIN 10 MG TAB PO SCH (21:08)
[2018-06-27] MEDS: MAGNESIUM OXIDE 400 MG TAB PO SCH (21:08)
[2018-06-27] MEDS: TEMAZEPAM 15 MG CAP PO PRN (21:12)
[2018-06-28] MEDS: PANTOPRAZOLE SODIUM IV 40 MG VIAL IV SCH (06:23)
[2018-06-28] MEDS ORDERED: levoFLOXacin 500MG IV 100 ML IVPB ONE (07:21)
[2018-06-28] MEDS: ASPIRIN (CHEWABLE) 81 MG TAB PO SCH (09:14)
[2018-06-28] MEDS: METOPROLOL SUCCINATE XL 25 MG TAB PO SCH (09:14)
[2018-06-28] MEDS: POTASSIUM CHLORIDE 20 MEQ TAB PO SCH ×2 (09:14→21:21)
[2018-06-28] MEDS: CITALOPRAM HBR 20 MG TAB PO SCH (09:15)
[2018-06-28] MEDS: ESTRADIOL TAB 1 MG PO SCH (09:15)
[2018-06-28] MEDS: LISINOPRIL 5 MG TAB PO SCH (09:16)
[2018-06-28] MEDS: ENOXAPARIN SODIUM 40 MG/0.4 ML SYG SUBCU SCH (09:16)
[2018-06-28] MEDS: OSELTAMIVIR 75 MG CAP PO SCH ×2 (09:18→21:22)
[2018-06-28] MEDS: NON-FORMULARY MEDICATION 1 EA MIS (Desvenlafaxine Succinate [Pristiq] 50 MG) PO SCH (09:32)
[2018-06-28] MEDS: levoFLOXacin 500MG IV 500 MG in PREMIX BAG 1 BAG IVPB SCH (11:30)
--- NOTE | 2018-06-28 15:28 | PN ---
DATE: 06/28/18 SUPERVISING PHYSICIAN: Mickey Villegas M.D. SUBJECTIVE: The patient is sitting up in her bed. She is visiting with family. She feels much better today than she did yesterday. She has some occasional shortness of breath with exertion but denies chest pain, nausea, vomiting or diarrhea. OBJECTIVE: VITAL SIGNS: Temperature 98.1, heart rate 79, blood pressure 120/69, respiratory rate 18, O2 sat 95% on room air. RESPIRATORY: She has a few scattered rhonchi throughout but otherwise clear to auscultation. CARDIAC: Regular rate and rhythm. GASTROINTESTINAL: Abdomen is soft, nondistended, non- tender. Bowel sounds are positive. NEUROLOGIC: She is awake, alert and oriented times three. LABORATORY: Urine culture shows mixed urogenital rico. Blood cultures show no growth after 48 hours. All other labs and films have been reviewed via the EMR. ASSESSMENT: 1. Sepsis related to pneumonia, most likely community acquired, with a temperature of 102.4, heart rate 102, lactic acid 2.1 on admission. WBCs were normal, but she has a left shift on differential. We cannot rule out the recent urinary tract infection contributed to her septicemia. 2. Urinary tract infection recently treated with Bactrim with the patient showing a possible allergy to sulfas. 3. Elevated temperature of 102.4 with negative influenza A and B per PCR, but cannot rule out other viral illness. 4. History of hypertension, stable on medications. 5. History of gastroesophageal reflux disease, stable on medications. 6. History of esophageal stricture, stable. 7. History of coronary artery disease with hyperlipidemia on medications. 8. History of intracerebral hemorrhage in 2011. 9. Mild elevation of liver enzymes with a history of mildly elevated liver enzymes with no recent history of a workup. PLAN: We will continue present supportive care. Will review her lab and chest x-ray in the morning. We will plan for discharge tomorrow. Her family is here and she is moving to [place]. We discussed her discharge at length with them to encourage her to take frequent breaks and she needed to rest after discharge. Will continue with good pulmonary hygiene. Will monitor closely and follow as needed. #[id number] [facility]
[2018-06-28] MEDS: ATORVASTATIN 10 MG TAB PO SCH (21:21)
[2018-06-28] MEDS: TEMAZEPAM 15 MG CAP PO PRN (21:22)
[2018-06-28] MEDS: MAGNESIUM OXIDE 400 MG TAB PO SCH (21:22)
[2018-06-29] MEDS: IV SET AND CAP CHANGE INJ INJ SCH (06:09)
[2018-06-29] MEDS: PANTOPRAZOLE SODIUM IV 40 MG VIAL IV SCH (06:09)
--- NOTE | 2018-06-29 06:48 | RAD ---
Chest 2 view on 06/29/2018 CLINICAL INDICATION: Pneumonia COMPARISON: 06/27/2018 FINDINGS: There is a very small right pleural effusion. Borderline cardiomegaly is noted. There is persistent right middle lobe opacity consistent with atelectasis and/or pneumonia. Lungs are otherwise clear. Vascular calcification is noted in the aorta. Hilar and mediastinal contours are within normal limits. IMPRESSION: No significant change in the appearance of the chest. Electronically signed by: César Andrews 06/29/2018 6:47 AM [facility]
[2018-06-29] MEDS: ESTRADIOL TAB 1 MG PO SCH (09:16)
[2018-06-29] MEDS: OSELTAMIVIR 75 MG CAP PO SCH (09:16)
[2018-06-29] MEDS: POTASSIUM CHLORIDE 20 MEQ TAB PO SCH (09:16)
[2018-06-29] MEDS: CITALOPRAM HBR 20 MG TAB PO SCH (09:16)
[2018-06-29] MEDS: LISINOPRIL 5 MG TAB PO SCH (09:17)
[2018-06-29] MEDS: ASPIRIN (CHEWABLE) 81 MG TAB PO SCH (09:17)
[2018-06-29] MEDS: METOPROLOL SUCCINATE XL 25 MG TAB PO SCH (09:17)
[2018-06-29] MEDS: NON-FORMULARY MEDICATION 1 EA MIS (Desvenlafaxine Succinate [Pristiq] 50 MG) PO SCH (09:17)
[2018-06-29] MEDS: ENOXAPARIN SODIUM 40 MG/0.4 ML SYG SUBCU SCH (09:17)
[2018-06-29 10:30] VITALS: BP 121/70; TEMP 98.1; O2SAT 96
--- NOTE | 2018-07-02 08:07 | DS ---
SUPERVISING PHYSICIAN: Mickey Villegas MD DISCHARGE DIAGNOSES: 1. Sepsis related to pneumonia, most likely community acquired, with a temperature of 102.4, heart rate 102, lactic acid 2.1 on admission. WBCs were normal, but she has a left shift on differential. We cannot rule out the recent urinary tract infection contributed to her septicemia. 2. Urinary tract infection recently treated with Bactrim with the patient showing a questionable allergy to sulfa. In the hospital she was treated with Levaquin. 3. Elevated temperature of 102.4 with negative influenza A and B per PCR, but cannot rule out other viral illness. 4. History of hypertension, stable on medications. 5. History of gastroesophageal reflux disease, stable on medications. 6. History of esophageal stricture, stable. 7. History of coronary artery disease with hyperlipidemia on medications. 8. History of intracerebral hemorrhage in 2011. 9. Mild elevation of liver enzymes with a history of mildly elevated liver enzymes with no recent history of a workup. HISTORY OF PRESENT ILLNESS: This is an 87-year-old female patient who came to the Emergency Room due to generalized weakness as well as high temperature for several hours prior to Emergency Room admission. She had a cough and had seen her primary care physician earlier for a urinary tract infection symptoms and was given Bactrim. She took one dose and then she remembered she was supposedly allergic to Bactrim and stopped taking it. The patient then had a fever of more than 102. She also had some rales in her right mid lungs and was very weak and required assistance with walking and standing. Her vital signs in the Emergency Room showed a temperature of 101.8 that went up to 102.4, heart rate 94, blood pressure 139/69, respiratory rate 20, O2 saturation 94% on room air. Blood cultures were done. Nose swab was done for influenza A and B by PCR and were both negative. Labs showed WBC of 6.2 with a left shift on differential, hemoglobin 12.5, hematocrit 38.3. Sodium 131, potassium 3.8, chloride 104, carbon dioxide 23, BUN 22, creatinine 1.09. Glucose 147, serum osmolality 274.3, lactic acid 2, AST 222, ALT 83, alkaline phosphatase 82, serum protein 5.9. Her urinalysis showed a trace of intact urine blood, trace of urine leukocyte esterase, 3 to 5 urine RBCs and 10 to 20 WBCs. Blood cultures were drawn and urine culture was ordered. Her chest x-ray showed right infrahilar opacity. She was given Levaquin as well as several breathing treatments. She also got some fluids and prednisone. She was admitted to the Floor for sepsis related to the pneumonia and urinary tract infection as well as elevated fever. HOSPITAL COURSE: Over the next few days she was given aggressive pulmonary hygiene. She was on Lovenox for DVT prophylaxis and a proton pump for ulcer prophylaxis. She had scheduled p.r.n. treatments. Her home medications were restarted and she slowly but progressively improved over the next several days. Chest CT was also done. The recommendations on her chest x-ray from the was: (1) Infiltrate is observed in the right middle lobe and it was felt to represent the abnormality seen on chest x-ray. She also had a right pleural effusion and a 7.8 right lower lobe pulmonary nodule that was unchanged from her previous CT. LABORATORY: Her white count was within normal limits and today her differential is normal. She has some mild electrolyte imbalances but she was to repeat supplementation. Followup lactic acid after fluids was 2.2. Her preliminary blood culture showed no growth after 4 days. Her sputum culture showed pharyngeal contamination. Clinically, she has improved at this point to where she will be discharged home today. Her final chest x-ray showed no significant change in the appearance of the chest. She will be discharged home today. It is to be noted that she is in the process of moving to [place]. Her 2 sons live in [place] and she is going to be moving there within the next few weeks. DISCHARGE PLAN: The patient was discharged home in stable condition. She is to resume her previous diet and increase her activity as tolerated. She will need to see Dr. Staples on 07/08/18 at 9:45 AM. She will also need to make arrangements for a primary care physician in [place]. She is to resume her previous medications as well as she is getting 3 additional days of Levaquin. She is to return to the hospital or followup with Dr. Staples for any problems or complications. DISCHARGE MEDICATIONS: 1. Estradiol. 2. Citalopram. 3. Magnesium. 4. Aspirin. 5. Lisinopril. 6. Calcium. 7. Potassium chloride. 8. Cyanocobalamin. 9. Coenzyme Q10. 10. Lipitor. 11. Levaquin. 12. Tamiflu. 13. Metoprolol. #[id number] [facility]
== END 2018-06-29 10:55 | disposition home or self-care (01) | DRG 871 ==
LOC: ER 00:07 → MS 03:29
PROVIDERS: ADMIT Nurse Practitioner Acute Care; ATTEND Nurse Practitioner Acute Care
DX: A41.9 Sepsis, unspecified organism (principal); J18.9 Pneumonia, unspecified organism; N39.0 Urinary tract infection, site not specified; I10 Essential (primary) hypertension; I25.10 Atherosclerotic heart disease of native coronary artery without angina pectoris; E78.5 Hyperlipidemia, unspecified; K21.9 Gastro-esophageal reflux disease without esophagitis; Z86.73 Personal history of transient ischemic attack (TIA), and cerebral infarction without residual deficits; Z79.82 Long term (current) use of aspirin; Z88.2 Allergy status to sulfonamides; Z66 Do not resuscitate